=== PATIENT | female | born 1940 | race Caucasian/White ===

== ENCOUNTER → 2019-06-13 16:06 | Outpatient (CLI) | payer MEDICARE, OTHER, SELFPAY ==
--- NOTE | 2019-06-13 | DI.RAD.S_ITS ---
PROCEDURE: XR KNEE RT 3V INDICATIONS: RIGHT KNEE PAIN TECHNIQUE: 3 views of the knee were acquired. COMPARISON: None. FINDINGS: Bones: No fractures or dislocations. No suspicious bony lesions. Note is made of a [id number] degree of degenerative osteoarthritic joint space narrowing at the lateral facet of the patellofemoral joint, without trauma. Soft tissues: No joint effusion. No suspicious soft tissue calcifications. IMPRESSION: No trauma found that there is moderately severe patellofemoral joint osteoarthritis is also a mild to moderate degree of medial compartment degenerative osteoarthritis on the frontal view. Dictated by: Gene Adams M.D. on 06/13/2019 at 17:23 Approved by: Gene Adams M.D. on 06/13/2019 at 17:24
== END ==
PROVIDERS: Family Provider Physician Assistant; PCP Physician Assistant; Visit Provider Internal Medicine
DX: S80.01XA Contusion of right knee, initial encounter (principal); M17.11 Unilateral primary osteoarthritis, right knee; M25.561 Pain in right knee
CPT/HCPCS: 73562

== ENCOUNTER → 2019-12-08 15:55 | Outpatient (ROUT) | payer MEDICARE, OTHER, SELFPAY ==
[2019-12-08 16:25] LABS: Add Manual Diff / Slide Review NO; Basophils Absolute Auto 100 /uL (0-100); Basophils Percent Auto 0.8 % (0-2); Eosinophils Absolute Auto 300 /uL (0-450); Eosinophils Percent Auto 3.8 % (2-4); Hematocrit 45.3 % (36-46); Hemoglobin 15.4 g/dL (12.0-16.0); Lymphocytes Absolute Auto 1700 /uL (1100-4500); Lymphocytes Percent Auto 25.9 % (25-40); Mean Corpuscular HGB Conc 34.1 % (30-36); Mean Corpuscular Hemoglobin 30.1 PG (26-34); Mean Corpuscular Volume 88.4 fL (80-100); Monocytes Absolute Auto 500 /uL (0-900); Monocytes Percent Auto 6.9 % (3-14); Neutrophils Absolute Auto 4100 /uL (1500-7000); Neutrophils Percent Auto 62.6 % (50-75); Platelet Count 226 X10^3/uL (150-400); Red Blood Cell Count 5.12 X10^6/uL (4.0-5.2); Red Cell Distribution Width 15.5 % (11.6-14.8); White Blood Cell Count 6.5 X10^3/uL (4.5-11.0)
[2019-12-08 16:43] LABS: Alanine Aminotransferase 27 IU/L (<35); Albumin 4.2 g/dL (3.5-5.0); Albumin Globulin Ratio 1.4 (1.0-2.8); Alkaline Phosphatase 65 U/L (38-126); Aspartate Aminotransferase 48 IU/L (14-36); BUN Creatinine Ratio 27.1 (6-22); Bilirubin Total 0.7 mg/dL (0.2-1.3); Blood Urea Nitrogen 19 mg/dL (7-17); Calcium 9.5 mg/dL (8.4-10.2); Carbon Dioxide 31 mmol/L (22-32); Chloride 100 mmol/L (98-107); Estimated Glomerular Filt Rate > 60.0 mL/min (>60); Globulin 3.1 g/dL (1.7-4.1); Glucose 98 mg/dL (80-110); HEMOLYSIS < 15 (0-50); Potassium 4.1 mmol/L (3.4-5.1); Sodium 138 mmol/L (137-145); Total Protein 7.3 g/dL (6.3-8.2)
[2019-12-08 16:52] LABS: NT-proBNP (BNP-Adult 18+) 150 pg/mL (<450)
[2019-12-08 17:12] LABS: Thyroid Stimulating Hormone 2.34 uIU/mL (0.47-4.68)
== END ==
PROVIDERS: Family Provider Physician Assistant; PCP Physician Assistant; Visit Provider Internal Medicine
DX: R53.83 Other fatigue (principal); R06.00 Dyspnea, unspecified
CPT/HCPCS: 80053; 83880; 84443; 85025

== ENCOUNTER → 2020-02-13 13:37 | Outpatient (CLI) | payer MEDICARE, OTHER, SELFPAY ==
--- NOTE | 2020-02-13 | DI.ECHO.S_ITS ---
[facility]---------+ [facility] +---------+ : : [address] : : : [place], [place] : : : : [id number] : : : : Phone: [phone]+ Echocardiogram Report + + :Name: ERIK RAY Study Date: 02/13/2020 Height: 64 in : :[facility] Weight: 190 lb : : Gender: Female BSA: 1.9 m2 : :: 1940 Age: 79 yrs BP: 118/74 mmHg: :Reason For Study: DYSPNEA : : Performed By: Stephanie Whitt : :Referring: TRI WYNN L : + + Interpretation Summary 1) Normal left ventricular size, thickness, wall motion, and systolic function (EF 60-65%). 2) Normal right ventricular size and function. 3) No significant valvular abnormalities. 4) The right ventricular systolic pressure is estimated to be at least 34 mmHg based on an estimated right atrial pressure of 3 mm Hg. 5) No prior Echo available for comparison. Procedure: A two-dimensional transthoracic echocardiogram with color flow and Doppler was performed. The study quality was technically adequate. The patient was in normal sinus rhythm during the exam. Left Ventricle: The left ventricle is normal in size and wall thickness. The ejection fraction is estimated to be 60-65%. Left ventricular wall motion is normal. Right Ventricle: The right ventricle is normal in size and function. Atria: Both atria are normal in size. There is no Doppler evidence for an interatrial shunt. Mitral Valve: The mitral valve is normal in structure and function. There is mild mitral regurgitation. Aortic Valve: The aortic valve is trileaflet. The aortic valve opens well. There is no aortic valve stenosis. There is trace aortic regurgitation. Tricuspid Valve: The tricuspid valve is normal in structure and function. There is mild tricuspid regurgitation. The right ventricular systolic pressure is estimated to be at least 34 mmHg based on an estimated right atrial pressure of 3 mm Hg. Pulmonic Valve: The pulmonic valve is not well seen, but is grossly normal. There is no pulmonic valvular regurgitation. Great Vessels: The aortic root is normal size. The ascending aorta could not be visualized. The IVC is of normal diameter and collapses greater than 50% with a sniff. This suggests a low right atrial pressure of 3 mm Hg. Pericardium/ Pleura There is no pericardial effusion. There is no pleural effusion. MMode/2D Measurements & Calculations LVIDd: 3.9 cm LVOT diam: 2.0 cm LVIDs: 2.8 cm Ao root diam: 3.6 cm FS: 29.1 % Ao Arch Diam (Prox Trans): 3.7 cm EPSS: 0.42 cm IVSd: 0.92 cm LVPWd: 0.98 cm LV tiwari. diameter/BSA (cm/m^2): 2.0 LV sys. diameter/BSA (cm/m^2): 1.4 LA A2 area: 20.3 cm2 RA long axis: 5.4 cm LA A4 area: 15.2 cm2 RA area: 14.3 cm2 LA length (vol): 5.2 cm RA vol: 32.1 ml LA vol: 49.8 ml RA : 16.8 ml/m2 LA vol index: 26.0 ml/m2 IVC diam: 1.3 cm RVD1 (basal): 2.7 cm TAPSE: 2.0 cm Doppler Measurements & Calculations Ao V2 max: 138.9 cm/sec LVOT Max Lonny: 94.8 cm/sec Ao V2 mean: 88.3 cm/sec LV V1 max P.6 mmHg Ao max P.7 mmHg LV V1 VTI: 22.4 cm Ao mean P.7 mmHg BIN(I,D): 2.6 cm2 Ao V2 VTI: 26.9 cm BIN(V,D): 2.1 cm2 sev ratio: 0.83 BIN indexed to BSA (cm^2/m^2): 1.3 MV E max lonny: 81.5 cm/sec TR max lonny: 277.9 cm/sec MV A max lonny: 86.8 cm/sec TR max P.9 mmHg MV E/A: 0.94 PA V2 max: 71.0 cm/sec Med Peak E' Lonny: 7.8 cm/sec PA V2 mean: 48.0 cm/sec E/E' med: 10.4 PA mean P.1 mmHg Lat Peak E' Lonny: 9.7 cm/sec E/E' lat: 8.4 E/e' average: 9.4 MV dec time: 0.20 sec SV(LVOT): 68.6 ml Reading Physician:03:19 PM
== END ==
PROVIDERS: Family Provider Physician Assistant; PCP Internal Medicine; Referring Provider Internal Medicine; Visit Provider Internal Medicine
DX: I08.1 Rheumatic disorders of both mitral and tricuspid valves (principal); R06.00 Dyspnea, unspecified
CPT/HCPCS: 93306

== ENCOUNTER 2020-03-12 16:19 | Inpatient (IN) | payer MEDICARE, OTHER, SELFPAY ==
[2020-03-12] VITALS (7 sets, daily range): BP systolic 100–127; BP diastolic 55–61; PULSE 73–104; RESP 16–32; TEMP 36.8–38.5; O2SAT 88–94; BMI 33.6
--- NOTE | 2020-03-12 16:35 | DI.RAD.S_ITS ---
PROCEDURE: XR CHEST 1V INDICATIONS: flu-like symptoms TECHNIQUE: One view of the chest was acquired. COMPARISON: [facility], , CHEST 1 VIEW, 12/22/2017, 12:08. FINDINGS: Surgical changes and devices: None. Lungs and pleura: Lungs are clear. Linear bibasilar scarring. No pleural effusions or pneumothorax. Mediastinum: Mediastinal contours appear normal. Heart size is normal. Bones and chest wall: No suspicious bony lesions. Overlying soft tissues appear unremarkable. IMPRESSION: No evidence acute pulmonary process. Dictated by: Renny Paredes M.D. on 03/12/2020 at 17:41 Approved by: Renny Paredes M.D. on 03/12/2020 at 17:42
[2020-03-12] MEDS: ALBUTEROL HFA 60 PUFF/8 GM INH INH (16:39)
--- NOTE | 2020-03-12 17:13 | ED.SOB ---
HPI - SOB/Dyspnea <Any Snyder PA-C - Last Filed: 03/12/20 21:46> General Chief Complaint: Shortness of Breath/Dyspnea Stated Complaint: VERY COLD FEVER COUGH Time Seen by Provider: 03/12/20 16:22 Source: patient Mode of arrival: Ambulatory Limitations: no limitations History of Present Illness HPI Narrative: This is a 79-year-old woman with a history of COPD and common variable immunodeficiency with recent conclusion of prednisone therapy following COPD exacerbation presents to the emergency department complaining of severe chills, fever, shortness of breath much worse with exertion, intermittent confusion, beginning this afternoon around lunchtime. She says that she has had a slight irritating dry cough today. says that while they were driving up here at 1 point he thinks she was slightly ?delirious and ?and he was not sure she knew where she was. He says this is very abnormal for her, she normally mentating well. She said that yesterday was a normal day for her, and she was feeling a little bit off this morning, when she started to get chills she decided to take a shower, but asked her to check on her he came back to check on her after her shower and she has had what looked like shaking chills and she was not her normal self in terms of her mentation. Her says that she did not have slurred speech or jumbled words. He denies any weakness, and says throughout the entire. She has been able to walk around normally and has not felt lightheaded. She says that the last 2 or 3 days she has noticed some slight burning with urination the 1st time she pees in the morning and then it has been fine after that. She says she has had urinary tract infections before but not for a few years. She denies body aches, weakness, vision changes, headache, coordination or gait issues, sore throat, chest pain, chest pain with inspiration, abdominal pain, diarrhea, constipation, syncope or any other symptoms. MD Complaint: shortness of breath and cough Onset (ago): hour(s) (6) Severity: severe Consistency/Duration: intermittent Relieving factors: rest and upright position Exacerbating factors: exertion and movement Known history of: COPD and other (sleep apnea, common variable immune deficiency) Associated symptoms: fever (and chills) and other (acting delirious intermittently per ) Treatment prior to arrival: none Related Data Home oxygen amount: none Home Medications Medication Instructions Recorded Confirmed calcium carbonate-vitamin D3 1.5 tab PO DAILY #0 02/07/09 03/12/20 [Calcium with Vitamin D] CHOLECALCIFEROL (VITAMIN D3) 2,000 iu PO Q DAY #0 12/24/11 03/12/20 (Vitamin D-3) acetaminophen 325 mg PO PRN PRN #0 12/24/11 03/12/20 aspirin 81 mg PO HS #0 12/24/11 03/12/20 levothyroxine [Synthroid] 1 tab PO QDAY #0 12/24/11 03/12/20 Spiriva Respimat 2 puff IH QAM #0 10/01/17 03/12/20 triamterene-hydrochlorothiazid 1 tab PO DAILY 04/28/18 03/12/20 metoprolol succinate 25 mg PO DAILY 06/23/18 03/12/20 amlodipine 5 mg PO DAILY 03/02/19 03/12/20 escitalopram oxalate [Lexapro] 10 mg PO DAILY 03/02/19 03/12/20 Respironics Dreamstation BIPAP #1 ea 08/15/19 03/12/20 Flovent Diskus 1 inh INHALATION BID 03/12/20 03/12/20 Hizentra 10 g SUBCUT WEEKLY 03/12/20 03/12/20 albuterol sulfate 2 puff INHALATION Q4H PRN 03/12/20 03/12/20 cyanocobalamin (vitamin B-12) 1,000 mcg PO DAILY 03/12/20 03/12/20 Previous Rx's Medication Instructions Recorded rosuvastatin [Crestor] 10 mg PO QHS #30 tab 12/23/17 cefdinir 300 mg PO BID 7 Days #14 cap 03/14/20 prednisone 40 mg PO DAILY 4 Days tab 03/14/20 Allergies Allergy/AdvReac Type Severity Reaction Status Date / Time Sulfa (Sulfonamide Allergy Unknown Verified 03/12/20 16:33 Antibiotics) [SULFA (SULFONAMIDE ANTIBIOTICS)] ciprofloxacin [From CIPRO] AdvReac Intermediate GEOGRAPHIC Verified 03/12/20 16:33 TONGUE diltiazem [DILTIAZEM] AdvReac Unknown SEVERE Verified 03/12/20 16:33 PALPITATIONS lisinopril [LISINOPRIL] AdvReac Unknown COUGH Verified 03/12/20 16:33 losartan AdvReac Hypertension Verified 03/12/20 19:02 Headache Review of Systems <Any Snyder PA-C - Last Filed: 03/12/20 21:46> Review of Systems Narrative: GENERAL: Denies sweats, malaise, endorses chills, fatigue, fever. HEENT: Denies sinus pain, ear pain, sore throat, difficulty swallowing, dizziness. RESPIRATORY: Endorses significant shortness of breath with exertion, mild cough, denies wheezing, hemoptysis, sputum. CARDIOVASCULAR: Denies chest pain, palpitations, orthopnea, edema, GASTROINTESTINAL: Denies nausea, vomiting, abdominal pain, diarrhea, constipation, melena. : Denies dysuria, frequency, incontinence, hematuria, urinary retention. MUSCULOSKELETAL: denies weakness, joint pain, or bony pain SKIN: Denies rash, skin lesions, or other NEUROLOGIC: Endorses confusion intermittently mid-day today, ?delirium per , Denies weakness, headache, numbness, change in speech, seizures, incoordination. PSYCHIATRIC: No concerning psychosocial issues. 12 point review of systems is negative except for those stated above Patient History <Any Snyder PA-C - Last Filed: 03/12/20 21:46> Medical History (Updated 03/12/20 @ 21:42 by Sondra Law MD) COPD (chronic obstructive pulmonary disease) (Acute) CVID (common variable immunodeficiency) (Acute) Depression (Acute) Hyperlipidemia (Acute) Hypertension (Acute) Hypothyroidism (Acute) Surgical History (Updated 03/12/20 @ 21:42 by Sondra Law MD) History of hysterectomy (Acute) Hx of tonsillectomy (Acute) Social History household members: spouse Smoking Status: Never smoker alcohol intake: current Smoking Status: Never smoker alcohol intake frequency: 0-2 drinks per day Substance Use Type: does not use Exam <Any Snyder PA-C - Last Filed: 03/12/20 21:46> Narrative Exam Narrative: GENERAL: 79 year old patient appears stated age. Well-nourished, well-developed patient, in mild-moderate distress at rest. HEAD: Atraumatic. Normocephalic. EYES: Pupils equal round and reactive. Extraocular motions intact. No scleral icterus. No injection or drainage. ENT: Nose without bleeding, purulent drainage. Throat without erythema, tonsillar hypertrophy or exudate. Airway patent. NECK: Trachea midline. Non tender CARDIOVASCULAR: Regular rate and rhythm without murmurs, gallops, or rubs. RESPIRATORY: Clear to auscultation. Breath sounds equal bilaterally (after breathing treatment). No wheezes, rales, or rhonchi. GASTROINTESTINAL: Abdomen soft, non-tender, nondistended. EXTREMITIES: No edema or joint tenderness. BACK: Nontender without deformity or crepitance. No flank tenderness. NEURO: AOx3. Strength is intact bilaterally upper and lower extremities 5/5, cranial nerves are intact, sensation is intact. SKIN: No rash or erythema of visible areas, skin is warm to the touch. Initial Vital Signs Initial Vital Signs: Vital Signs Temperature 101.3 F H 03/12/20 16:23 Pulse Rate 104 H 03/12/20 16:23 Respiratory Rate 32 H 03/12/20 16:23 Blood Pressure 127/61 03/12/20 16:23 Pulse Oximetry 91 03/12/20 16:23 <Bud Mcdaniel DO - Last Filed: 03/15/20 20:41> Initial Vital Signs Initial Vital Signs: Vital Signs Temperature 101.3 F H 03/12/20 16:23 Pulse Rate 104 H 03/12/20 16:23 Respiratory Rate 32 H 03/12/20 16:23 Blood Pressure 127/61 03/12/20 16:23 Pulse Oximetry 91 03/12/20 16:23 Course <Any Snyder PA-C - Last Filed: 03/12/20 21:46> Course Course Narrative: Patient had significant dyspnea on arrival, with walking to the bathroom she desaturated to 81%, however after a breathing treatment via inhaler and resting in bed she was much improved and not feeling short of breath, however she still feels very cold. Her D-dimer is 397, age adjusted D-dimer cut off is 770 an additional imaging is not warranted. 17:43 Doctor Thanh, hospitalist accepted the patient for admission for hypoxia. 20:28 Orders Ordered: Discontinued Medications Acetaminophen (Tylenol) 325 mg PO PRN PRN PRN Reason: Pain (Scale Score 1-3) Last Admin: 03/14/20 11:33 Dose: 325 mg Documented by: Admin: 03/14/20 07:54 Dose: 325 mg Documented by: MAXIMILIAN Albuterol (Ventolin Hfa) 2 puff INH NOW ONE Stop: 03/12/20 16:35 Last Admin: 03/12/20 16:39 Dose: 2 puff Documented by: DAR Albuterol (Ventolin Hfa (Vent/Covid R/O)) 2 puff INH Q4H PRN PRN Reason: Shortness Of Breath Albuterol (Ventolin Hfa) 2 puff INH Q4H PRN PRN Reason: Shortness Of Breath Amlodipine Besylate (Norvasc) 5 mg PO DAILY [facility] Last Admin: 03/14/20 08:00 Dose: 5 mg Documented by: Admin: 03/13/20 08:40 Dose: 5 mg Documented by: GRICELDA Aspirin (Aspirin Ec) 81 mg PO BEDTIME [facility] Last Admin: 03/13/20 20:20 Dose: 81 mg Documented by: Admin: 03/12/20 22:10 Dose: 81 mg Documented by: MIKE Calcium Carbonate/Cholecalciferol (Oyster Shell 500-Vit D3 200 Tb) 1.5 each PO DAILY [facility] Last Admin: 03/14/20 08:00 Dose: 1.5 each Documented by: Admin: 03/13/20 09:37 Dose: 1.5 each Documented by: MAXIMILIAN Cyanocobalamin (Vitamin B-12) 1,000 mcg PO DAILY [facility] Last Admin: 03/14/20 07:59 Dose: 1,000 mcg Documented by: Admin: 03/13/20 08:40 Dose: 1,000 mcg Documented by: GRICELDA Enoxaparin Sodium (Lovenox) 40 mg SUBCUT DAILY [facility] Last Admin: 03/14/20 11:18 Dose: Not Given Documented by: Admin: 03/13/20 08:41 Dose: Not Given Documented by: GRICELDA Escitalopram Oxalate (Lexapro) 10 mg PO DAILY [facility] Last Admin: 03/14/20 11:16 Dose: 10 mg Documented by: Admin: 03/13/20 08:41 Dose: 10 mg Documented by: GRICELDA Fluticasone Propionate (Flonase) 1 spray NASAL BID [facility] Sodium Chloride (Normal Saline 0.9%) 1,000 mls @ 125 mls/hr IV CONT [facility] Last Infusion: 03/13/20 13:23 Dose: 0 mls/hr Documented by: Admin: 03/13/20 06:11 Dose: 125 mls/hr Documented by: Infusion: 03/13/20 06:11 Dose: 125 mls/hr Documented by: Admin: 03/12/20 22:11 Dose: 125 mls/hr Documented by: Admin: 03/12/20 20:45 Dose: Not Given Documented by: HALIEM Ceftriaxone Sodium/Dextrose (Rocephin) 2 gm in 50 mls @ 100 mls/hr IV Q24H [facility] Last Infusion: 03/14/20 11:29 Dose: 0 mls/hr Documented by: Admin: 03/14/20 08:04 Dose: 100 mls/hr Documented by: Infusion: 03/13/20 13:23 Dose: 0 mls/hr Documented by: Admin: 03/13/20 09:37 Dose: 100 mls/hr Documented by: MAXIMILIAN Levothyroxine Sodium (Synthroid) 75 mcg PO QACBREAK [facility] Last Admin: 03/14/20 06:06 Dose: 75 mcg Documented by: Admin: 03/13/20 06:49 Dose: 75 mcg Documented by: NIKIA Metoprolol Succinate (Toprol Xl) 25 mg PO DAILY [facility] Last Admin: 03/14/20 08:00 Dose: 25 mg Documented by: Admin: 03/13/20 08:40 Dose: 25 mg Documented by: GRICELDA Naloxone HCl (Narcan) 0.2 mg IV Q2MIN PRN PRN Reason: Opiate Reversal Fluticasone (Propionate 250 Mcg) 250 mcg INH BID [facility] Last Admin: 03/14/20 08:49 Dose: 250 mcg Documented by: Admin: 03/13/20 19:04 Dose: 250 mcg Documented by: Admin: 03/13/20 09:17 Dose: 250 mcg Documented by: JULIANA Prednisone (Deltasone) 40 mg PO DAILY [facility] Last Admin: 03/14/20 07:59 Dose: 40 mg Documented by: Admin: 03/13/20 08:41 Dose: 40 mg Documented by: GRICELDA Rosuvastatin Calcium (Crestor) 10 mg PO BEDTIME [facility] Last Admin: 03/13/20 20:20 Dose: 10 mg Documented by: Admin: 03/12/20 22:10 Dose: 10 mg Documented by: MIKE Tiotropium [place] (Spiriva) 18 mcg INH RTDAILY EMILIO Tiotropium [place] (Spiriva) 18 mcg INH RTDAILY [facility] Last Admin: 03/14/20 08:49 Dose: 18 mcg Documented by: Admin: 03/13/20 09:17 Dose: 18 mcg Documented by: JULIANA Triamterene/HCTZ (Maxide 37.5/25) 1 tab PO DAILY [facility] Last Admin: 03/14/20 08:02 Dose: 1 tab Documented by: Admin: 03/13/20 08:41 Dose: 1 tab Documented by: GRICELDA Vitamin D (Vitamin D3) 2,000 unit PO DAILY [facility] Last Admin: 03/14/20 08:01 Dose: 2,000 unit Documented by: Admin: 03/13/20 08:40 Dose: 2,000 unit Documented by: GRICELDA Vital Signs Vital signs: Vital Signs - 8 hr 03/12/20 16:23 03/12/20 16:48 03/12/20 18:18 Temperature 101.3 F H Pulse Rate 104 H 93 H Respiratory Rate 32 H 16 Blood Pressure 127/61 Blood Pressure [Left Arm] Pulse Oximetry 91 92 88 L 03/12/20 19:45 03/12/20 20:00 03/12/20 20:30 Temperature 99.3 F Pulse Rate 88 83 83 Respiratory Rate Blood Pressure Blood Pressure [Left Arm] 122/58 L 105/55 L 100/58 L Pulse Oximetry 92 92 93 <Bud Mcdaniel DO - Last Filed: 03/15/20 20:41> Orders Ordered: Discontinued Medications Acetaminophen (Tylenol) 325 mg PO PRN PRN PRN Reason: Pain (Scale Score 1-3) Last Admin: 03/14/20 11:33 Dose: 325 mg Documented by: Admin: 03/14/20 07:54 Dose: 325 mg Documented by: MAXIMILIAN Albuterol (Ventolin Hfa) 2 puff INH NOW ONE Stop: 03/12/20 16:35 Last Admin: 03/12/20 16:39 Dose: 2 puff Documented by: DAR Albuterol (Ventolin Hfa (Vent/Covid R/O)) 2 puff INH Q4H PRN PRN Reason: Shortness Of Breath Albuterol (Ventolin Hfa) 2 puff INH Q4H PRN PRN Reason: Shortness Of Breath Amlodipine Besylate (Norvasc) 5 mg PO DAILY [facility] Last Admin: 03/14/20 08:00 Dose: 5 mg Documented by: Admin: 03/13/20 08:40 Dose: 5 mg Documented by: GRICELDA Aspirin (Aspirin Ec) 81 mg PO BEDTIME [facility] Last Admin: 03/13/20 20:20 Dose: 81 mg Documented by: Admin: 03/12/20 22:10 Dose: 81 mg Documented by: MIKE Calcium Carbonate/Cholecalciferol (Oyster Shell 500-Vit D3 200 Tb) 1.5 each PO DAILY [facility] Last Admin: 03/14/20 08:00 Dose: 1.5 each Documented by: Admin: 03/13/20 09:37 Dose: 1.5 each Documented by: MAXIMILIAN Cyanocobalamin (Vitamin B-12) 1,000 mcg PO DAILY [facility] Last Admin: 03/14/20 07:59 Dose: 1,000 mcg Documented by: Admin: 03/13/20 08:40 Dose: 1,000 mcg Documented by: GRICELDA Enoxaparin Sodium (Lovenox) 40 mg SUBCUT DAILY [facility] Last Admin: 03/14/20 11:18 Dose: Not Given Documented by: Admin: 03/13/20 08:41 Dose: Not Given Documented by: GRICELDA Escitalopram Oxalate (Lexapro) 10 mg PO DAILY [facility] Last Admin: 03/14/20 11:16 Dose: 10 mg Documented by: Admin: 03/13/20 08:41 Dose: 10 mg Documented by: GRICELDA Fluticasone Propionate (Flonase) 1 spray NASAL BID [facility] Sodium Chloride (Normal Saline 0.9%) 1,000 mls @ 125 mls/hr IV CONT [facility] Last Infusion: 03/13/20 13:23 Dose: 0 mls/hr Documented by: Admin: 03/13/20 06:11 Dose: 125 mls/hr Documented by: Infusion: 03/13/20 06:11 Dose: 125 mls/hr Documented by: Admin: 03/12/20 22:11 Dose: 125 mls/hr Documented by: Admin: 03/12/20 20:45 Dose: Not Given Documented by: HALIEM Ceftriaxone Sodium/Dextrose (Rocephin) 2 gm in 50 mls @ 100 mls/hr IV Q24H [facility] Last Infusion: 03/14/20 11:29 Dose: 0 mls/hr Documented by: Admin: 03/14/20 08:04 Dose: 100 mls/hr Documented by: Infusion: 03/13/20 13:23 Dose: 0 mls/hr Documented by: Admin: 03/13/20 09:37 Dose: 100 mls/hr Documented by: MAXIMILIAN Levothyroxine Sodium (Synthroid) 75 mcg PO QACBREAK [facility] Last Admin: 03/14/20 06:06 Dose: 75 mcg Documented by: Admin: 03/13/20 06:49 Dose: 75 mcg Documented by: NIKIA Metoprolol Succinate (Toprol Xl) 25 mg PO DAILY [facility] Last Admin: 03/14/20 08:00 Dose: 25 mg Documented by: Admin: 03/13/20 08:40 Dose: 25 mg Documented by: GRICELDA Naloxone HCl (Narcan) 0.2 mg IV Q2MIN PRN PRN Reason: Opiate Reversal Fluticasone (Propionate 250 Mcg) 250 mcg INH BID [facility] Last Admin: 03/14/20 08:49 Dose: 250 mcg Documented by: Admin: 03/13/20 19:04 Dose: 250 mcg Documented by: Admin: 03/13/20 09:17 Dose: 250 mcg Documented by: JULIANA Prednisone (Deltasone) 40 mg PO DAILY [facility] Last Admin: 03/14/20 07:59 Dose: 40 mg Documented by: Admin: 03/13/20 08:41 Dose: 40 mg Documented by: GRICELDA Rosuvastatin Calcium (Crestor) 10 mg PO BEDTIME [facility] Last Admin: 03/13/20 20:20 Dose: 10 mg Documented by: Admin: 03/12/20 22:10 Dose: 10 mg Documented by: MIKE Tiotropium [place] (Spiriva) 18 mcg INH RTDAILY EMILIO Tiotropium [place] (Spiriva) 18 mcg INH RTDAILY [facility] Last Admin: 03/14/20 08:49 Dose: 18 mcg Documented by: Admin: 03/13/20 09:17 Dose: 18 mcg Documented by: JULIANA Triamterene/HCTZ (Maxide 37.5/25) 1 tab PO DAILY [facility] Last Admin: 03/14/20 08:02 Dose: 1 tab Documented by: Admin: 03/13/20 08:41 Dose: 1 tab Documented by: GRICELDA Vitamin D (Vitamin D3) 2,000 unit PO DAILY [facility] Last Admin: 03/14/20 08:01 Dose: 2,000 unit Documented by: Admin: 03/13/20 08:40 Dose: 2,000 unit Documented by: GRICELDA Vital Signs Vital signs: Vital Signs - 8 hr 03/12/20 16:23 03/12/20 16:48 03/12/20 18:18 Temperature 101.3 F H Pulse Rate 104 H 93 H Respiratory Rate 32 H 16 Blood Pressure 127/61 Blood Pressure [Left Arm] Pulse Oximetry 91 92 88 L 03/12/20 19:45 03/12/20 20:00 03/12/20 20:30 Temperature 99.3 F Pulse Rate 88 83 83 Respiratory Rate Blood Pressure Blood Pressure [Left Arm] 122/58 L 105/55 L 100/58 L Pulse Oximetry 92 92 93 MDM - SOB/Dyspnea <Any Snyder PA-C - Last Filed: 03/12/20 21:46> Differential Diagnosis Differential diagnosis: Likely acute exacerbation of chronic obstructive airways disease and other (hypoxia, fever, chills) Medical Records Attestation: I reviewed the patient's medical records. Lab Data Attestation: I reviewed the patient's lab results. Result diagrams: 03/13/20 04:53 03/13/20 04:53 Labs: Lab Results 03/12/20 03/12/20 03/12/20 Range/Units 16:00 16:55 16:55 WBC (4.5-11.0) X10^3/uL RBC (4.0-5.2) X10^6/uL Hgb (12.0-16.0) g/dL Hct (36-46) % MCV (80-100) fL MCH (26-34) PG MCHC (30-36) % RDW (11.6-14.8) % Plt Count (150-400) X10^3/uL Neut % (Auto) (50-75) % Lymph % (Auto) (25-40) % [place] % (Auto) (3-14) % Eos % (Auto) (2-4) % Baso % (Auto) (0-2) % Neut # (Auto) (4309-8605) /uL Lymph # (Auto) (5879-1834) /uL [place] # (Auto) (0-900) /uL Eos # (Auto) (0-450) /uL Baso # (Auto) (0-100) /uL D-Dimer (<230) ng/mL Sodium (137-145) mmol/L Potassium (3.4-5.1) mmol/L Chloride (98-107) mmol/L Carbon Dioxide (22-32) mmol/L BUN (7-17) mg/dL Creatinine (0.52-1.04) mg/dL Estimated GFR (>60) mL/min BUN/Creatinine Ratio (6-22) Glucose (80-110) mg/dL Lactate (0.7-2.1) mmol/L Calcium (8.4-10.2) mg/dL Ferritin (11-264) ng/mL Total Bilirubin (0.2-1.3) mg/dL AST (14-36) IU/L ALT (<35) IU/L Alkaline Phosphatase (38-126) U/L Lactate Dehydrogenase (313-618) U/L Total Creatine Kinase (30-135) U/L CK-MB (CK-2) CK-MB (CK-2) Rel Index Troponin I (0.01-0.034) ng/mL C-Reactive Protein (<1.0) mg/dL NT-Pro-B Natriuret Pep (<450) pg/mL Total Protein (6.3-8.2) g/dL Albumin (3.5-5.0) g/dL Globulin (1.7-4.1) g/dL Albumin/Globulin Ratio (1.0-2.8) Procalcitonin (<0.5) ng/mL TSH (0.47-4.68) uIU/mL Urine Color Urine Appearance Urine pH (4.5-8.0) Ur Specific [place] (1.000-1.035) Urine Protein (Negative) Urine Glucose (UA) (Negative) g/dL Urine Ketones (NEGATIVE) Urine Occult Blood (Negative) Urine Nitrate (Negative) Urine Bilirubin (NEGATIVE) Urine Urobilinogen (0.2) E.U./dL Ur Leukocyte Esterase (NEGATIVE) Urine RBC (0-5/HPF) Urine WBC (0-5/HPF) Ur Squamous Epith Cells (0-5/HPF) Urine Bacteria (None) Ur Culture Indicated? COVID-19 PCR Cancelled Negative Influenza A (RT-PCR) Flu a negative (NEGATIVE) Influenza B (RT-PCR) Flu b negative (NEGATIVE) 03/12/20 03/12/20 03/12/20 Range/Units 16:58 16:58 16:58 WBC 10.5 (4.5-11.0) X10^3/uL RBC 5.35 H (4.0-5.2) X10^6/uL Hgb 16.2 H (12.0-16.0) g/dL Hct 46.5 H (36-46) % MCV 87.0 (80-100) fL MCH 30.2 (26-34) PG MCHC 34.8 (30-36) % RDW 14.9 H (11.6-14.8) % Plt Count 155 (150-400) X10^3/uL Neut % (Auto) 86.0 H (50-75) % Lymph % (Auto) 5.9 L (25-40) % [place] % (Auto) 5.3 (3-14) % Eos % (Auto) 2.2 (2-4) % Baso % (Auto) 0.6 (0-2) % Neut # (Auto) 9100 H (8585-1643) /uL Lymph # (Auto) 600 L (6934-4483) /uL [place] # (Auto) 600 (0-900) /uL Eos # (Auto) 200 (0-450) /uL Baso # (Auto) 100 (0-100) /uL D-Dimer 397 H (<230) ng/mL Sodium (137-145) mmol/L Potassium (3.4-5.1) mmol/L Chloride (98-107) mmol/L Carbon Dioxide (22-32) mmol/L BUN (7-17) mg/dL Creatinine (0.52-1.04) mg/dL Estimated GFR (>60) mL/min BUN/Creatinine Ratio (6-22) Glucose (80-110) mg/dL Lactate (0.7-2.1) mmol/L Calcium (8.4-10.2) mg/dL Ferritin (11-264) ng/mL Total Bilirubin (0.2-1.3) mg/dL AST (14-36) IU/L ALT (<35) IU/L Alkaline Phosphatase (38-126) U/L Lactate Dehydrogenase (313-618) U/L Total Creatine Kinase (30-135) U/L CK-MB (CK-2) CK-MB (CK-2) Rel Index Troponin I (0.01-0.034) ng/mL C-Reactive Protein (<1.0) mg/dL NT-Pro-B Natriuret Pep (<450) pg/mL Total Protein (6.3-8.2) g/dL Albumin (3.5-5.0) g/dL Globulin (1.7-4.1) g/dL Albumin/Globulin Ratio (1.0-2.8) Procalcitonin 0.39 (<0.5) ng/mL TSH (0.47-4.68) uIU/mL Urine Color Urine Appearance Urine pH (4.5-8.0) Ur Specific [place] (1.000-1.035) Urine Protein (Negative) Urine Glucose (UA) (Negative) g/dL Urine Ketones (NEGATIVE) Urine Occult Blood (Negative) Urine Nitrate (Negative) Urine Bilirubin (NEGATIVE) Urine Urobilinogen (0.2) E.U./dL Ur Leukocyte Esterase (NEGATIVE) Urine RBC (0-5/HPF) Urine WBC (0-5/HPF) Ur Squamous Epith Cells (0-5/HPF) Urine Bacteria (None) Ur Culture Indicated? COVID-19 PCR Influenza A (RT-PCR) (NEGATIVE) Influenza B (RT-PCR) (NEGATIVE) 03/12/20 03/12/20 03/12/20 Range/Units 16:58 16:58 16:58 WBC (4.5-11.0) X10^3/uL RBC (4.0-5.2) X10^6/uL Hgb (12.0-16.0) g/dL Hct (36-46) % MCV (80-100) fL MCH (26-34) PG MCHC (30-36) % RDW (11.6-14.8) % Plt Count (150-400) X10^3/uL Neut % (Auto) (50-75) % Lymph % (Auto) (25-40) % [place] % (Auto) (3-14) % Eos % (Auto) (2-4) % Baso % (Auto) (0-2) % Neut # (Auto) (7195-6211) /uL Lymph # (Auto) (5234-3940) /uL [place] # (Auto) (0-900) /uL Eos # (Auto) (0-450) /uL Baso # (Auto) (0-100) /uL D-Dimer (<230) ng/mL Sodium 132 L (137-145) mmol/L Potassium 4.0 (3.4-5.1) mmol/L Chloride 92 L (98-107) mmol/L Carbon Dioxide 31 (22-32) mmol/L BUN 23 H (7-17) mg/dL Creatinine 0.93 (0.52-1.04) mg/dL Estimated GFR 58.5 L (>60) mL/min BUN/Creatinine Ratio 24.7 H (6-22) Glucose 104 (80-110) mg/dL Lactate 1.2 (0.7-2.1) mmol/L Calcium 9.3 (8.4-10.2) mg/dL Ferritin 63 (11-264) ng/mL Total Bilirubin 0.7 (0.2-1.3) mg/dL AST 51 H (14-36) IU/L ALT 45 H (<35) IU/L Alkaline Phosphatase 63 (38-126) U/L Lactate Dehydrogenase (313-618) U/L Total Creatine Kinase 39 (30-135) U/L CK-MB (CK-2) TNP CK-MB (CK-2) Rel Index TNP Troponin I < 0.012 (0.01-0.034) ng/mL C-Reactive Protein 1.7 H (<1.0) mg/dL NT-Pro-B Natriuret Pep 1020 H (<450) pg/mL Total Protein 7.7 (6.3-8.2) g/dL Albumin 4.3 (3.5-5.0) g/dL Globulin 3.4 (1.7-4.1) g/dL Albumin/Globulin Ratio 1.3 (1.0-2.8) Procalcitonin (<0.5) ng/mL TSH 3.40 (0.47-4.68) uIU/mL Urine Color Urine Appearance Urine pH (4.5-8.0) Ur Specific [place] (1.000-1.035) Urine Protein (Negative) Urine Glucose (UA) (Negative) g/dL Urine Ketones (NEGATIVE) Urine Occult Blood (Negative) Urine Nitrate (Negative) Urine Bilirubin (NEGATIVE) Urine Urobilinogen (0.2) E.U./dL Ur Leukocyte Esterase (NEGATIVE) Urine RBC (0-5/HPF) Urine WBC (0-5/HPF) Ur Squamous Epith Cells (0-5/HPF) Urine Bacteria (None) Ur Culture Indicated? COVID-19 PCR Influenza A (RT-PCR) (NEGATIVE) Influenza B (RT-PCR) (NEGATIVE) 03/12/20 03/12/20 03/13/20 Range/Units 16:58 17:50 04:53 WBC (4.5-11.0) X10^3/uL RBC (4.0-5.2) X10^6/uL Hgb (12.0-16.0) g/dL Hct (36-46) % MCV (80-100) fL MCH (26-34) PG MCHC (30-36) % RDW (11.6-14.8) % Plt Count (150-400) X10^3/uL Neut % (Auto) (50-75) % Lymph % (Auto) (25-40) % [place] % (Auto) (3-14) % Eos % (Auto) (2-4) % Baso % (Auto) (0-2) % Neut # (Auto) (3335-9986) /uL Lymph # (Auto) (3789-6868) /uL [place] # (Auto) (0-900) /uL Eos # (Auto) (0-450) /uL Baso # (Auto) (0-100) /uL D-Dimer (<230) ng/mL Sodium 135 L (137-145) mmol/L Potassium 4.0 (3.4-5.1) mmol/L Chloride 97 L (98-107) mmol/L Carbon Dioxide 30 (22-32) mmol/L BUN 20 H (7-17) mg/dL Creatinine 0.97 (0.52-1.04) mg/dL Estimated GFR 55.7 L (>60) mL/min BUN/Creatinine Ratio 20.6 (6-22) Glucose 97 (80-110) mg/dL Lactate (0.7-2.1) mmol/L Calcium 8.6 (8.4-10.2) mg/dL Ferritin (11-264) ng/mL Total Bilirubin 0.8 (0.2-1.3) mg/dL AST 40 H (14-36) IU/L ALT 36 H (<35) IU/L Alkaline Phosphatase 45 (38-126) U/L Lactate Dehydrogenase 475 (313-618) U/L Total Creatine Kinase (30-135) U/L CK-MB (CK-2) CK-MB (CK-2) Rel Index Troponin I (0.01-0.034) ng/mL C-Reactive Protein (<1.0) mg/dL NT-Pro-B Natriuret Pep (<450) pg/mL Total Protein 6.9 (6.3-8.2) g/dL Albumin 3.7 (3.5-5.0) g/dL Globulin 3.2 (1.7-4.1) g/dL Albumin/Globulin Ratio 1.2 (1.0-2.8) Procalcitonin (<0.5) ng/mL TSH (0.47-4.68) uIU/mL Urine Color Yellow Urine Appearance Clear Urine pH 7.0 (4.5-8.0) Ur Specific [place] 1.010 (1.000-1.035) Urine Protein Trace H (Negative) Urine Glucose (UA) Negative (Negative) g/dL Urine Ketones Negative (NEGATIVE) Urine Occult Blood 1+ H (Negative) Urine Nitrate Negative (Negative) Urine Bilirubin Negative (NEGATIVE) Urine Urobilinogen 0.2 (0.2) E.U./dL Ur Leukocyte Esterase Trace H (NEGATIVE) Urine RBC 5-10/hpf H (0-5/HPF) Urine WBC 5-10/hpf H (0-5/HPF) Ur Squamous Epith Cells 0-1 /hpf (0-5/HPF) Urine Bacteria Few (2-10) H (None) Ur Culture Indicated? Specimen cultured COVID-19 PCR Influenza A (RT-PCR) (NEGATIVE) Influenza B (RT-PCR) (NEGATIVE) 03/13/20 03/13/20 Range/Units 04:53 04:53 WBC 7.1 (4.5-11.0) X10^3/uL RBC 5.11 (4.0-5.2) X10^6/uL Hgb 15.3 (12.0-16.0) g/dL Hct 44.4 (36-46) % MCV 87.0 (80-100) fL MCH 29.9 (26-34) PG MCHC 34.4 (30-36) % RDW 14.6 (11.6-14.8) % Plt Count 125 L (150-400) X10^3/uL Neut % (Auto) 76.0 H (50-75) % Lymph % (Auto) 12.6 L (25-40) % [place] % (Auto) 8.5 (3-14) % Eos % (Auto) 2.0 (2-4) % Baso % (Auto) 0.9 (0-2) % Neut # (Auto) 5400 (9444-9834) /uL Lymph # (Auto) 900 L (0478-7566) /uL [place] # (Auto) 600 (0-900) /uL Eos # (Auto) 100 (0-450) /uL Baso # (Auto) 100 (0-100) /uL D-Dimer (<230) ng/mL Sodium (137-145) mmol/L Potassium (3.4-5.1) mmol/L Chloride (98-107) mmol/L Carbon Dioxide (22-32) mmol/L BUN (7-17) mg/dL Creatinine (0.52-1.04) mg/dL Estimated GFR (>60) mL/min BUN/Creatinine Ratio (6-22) Glucose (80-110) mg/dL Lactate (0.7-2.1) mmol/L Calcium (8.4-10.2) mg/dL Ferritin (11-264) ng/mL Total Bilirubin (0.2-1.3) mg/dL AST (14-36) IU/L ALT (<35) IU/L Alkaline Phosphatase (38-126) U/L Lactate Dehydrogenase (313-618) U/L Total Creatine Kinase (30-135) U/L CK-MB (CK-2) CK-MB (CK-2) Rel Index Troponin I (0.01-0.034) ng/mL C-Reactive Protein (<1.0) mg/dL NT-Pro-B Natriuret Pep 733 H (<450) pg/mL Total Protein (6.3-8.2) g/dL Albumin (3.5-5.0) g/dL Globulin (1.7-4.1) g/dL Albumin/Globulin Ratio (1.0-2.8) Procalcitonin (<0.5) ng/mL TSH (0.47-4.68) uIU/mL Urine Color Urine Appearance Urine pH (4.5-8.0) Ur Specific [place] (1.000-1.035) Urine Protein (Negative) Urine Glucose (UA) (Negative) g/dL Urine Ketones (NEGATIVE) Urine Occult Blood (Negative) Urine Nitrate (Negative) Urine Bilirubin (NEGATIVE) Urine Urobilinogen (0.2) E.U./dL Ur Leukocyte Esterase (NEGATIVE) Urine RBC (0-5/HPF) Urine WBC (0-5/HPF) Ur Squamous Epith Cells (0-5/HPF) Urine Bacteria (None) Ur Culture Indicated? COVID-19 PCR Influenza A (RT-PCR) (NEGATIVE) Influenza B (RT-PCR) (NEGATIVE) Imaging Data Chest x-ray: Attestation: I personally reviewed and interpreted this imaging study as follows: Radiologist's Impression: [address] [address] XRay Report Signed Patient: TejadaLis LMR#: [id number] : 3Acct:[id number] Age/Sex: 79 / FDate of Service: 03/12/20 Loc: ED Accession Number: [id number] Procedure: XR chest 1V Ordering Provider: Any Snyder P.A-C PROCEDURE: XR CHEST 1V INDICATIONS: flu-like symptoms TECHNIQUE: One view of the chest was acquired. COMPARISON: [facility], CHEST 1 VIEW, 12/22/2017, 12:08. FINDINGS: Surgical changes and devices: None. Lungs and pleura: Lungs are clear. Linear bibasilar scarring. No pleural effusions or pneumothorax. Mediastinum: Mediastinal contours appear normal. Heart size is normal. Bones and chest wall: No suspicious bony lesions. Overlying soft tissues appear unremarkable. IMPRESSION: No evidence acute pulmonary process. Dictated by: Renny Paredes M.D. on 03/12/2020 at 17:41 Approved by: Renny Paredes M.D. 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 History is notable for recently finishing a 3 week course of steroids. Differential diagnoses that were considered include: COPD exacerbation, influenza, COVID-19, viral illness, bacterial pneumonia, viral pneumonia CHF, urinary tract infection, sepsis That she did have some relief with the breathing treatment in the emergency department, it is not clear that her shortness of breath is due to her COPD, labs were largely unremarkable with exception an elevated BNP, and she also had continued shortness of breath with exertion. Suspected infectious etiology/cause of her fever and chills was not identified. UTI is considered given her mild urinary symptoms by Hx, however her urinalysis is not particularly remarkable. Patient was ultimately admitted to Dr. Law, hospitalist as an inpatient for further management given her continued hypoxia. <Bud Jonas, DO - Last Filed: 03/15/20 20:41> Lab Data Labs: Lab Results 03/12/20 03/12/20 03/12/20 Range/Units 16:00 16:55 16:55 WBC (4.5-11.0) X10^3/uL RBC (4.0-5.2) X10^6/uL Hgb (12.0-16.0) g/dL Hct (36-46) % MCV (80-100) fL MCH (26-34) PG MCHC (30-36) % RDW (11.6-14.8) % Plt Count (150-400) X10^3/uL Neut % (Auto) (50-75) % Lymph % (Auto) (25-40) % [place] % (Auto) (3-14) % Eos % (Auto) (2-4) % Baso % (Auto) (0-2) % Neut # (Auto) (7509-1419) /uL Lymph # (Auto) (5350-1801) /uL [place] # (Auto) (0-900) /uL Eos # (Auto) (0-450) /uL Baso # (Auto) (0-100) /uL D-Dimer (<230) ng/mL Sodium (137-145) mmol/L Potassium (3.4-5.1) mmol/L Chloride (98-107) mmol/L Carbon Dioxide (22-32) mmol/L BUN (7-17) mg/dL Creatinine (0.52-1.04) mg/dL Estimated GFR (>60) mL/min BUN/Creatinine Ratio (6-22) Glucose (80-110) mg/dL Lactate (0.7-2.1) mmol/L Calcium (8.4-10.2) mg/dL Ferritin (11-264) ng/mL Total Bilirubin (0.2-1.3) mg/dL AST (14-36) IU/L ALT (<35) IU/L Alkaline Phosphatase (38-126) U/L Lactate Dehydrogenase (313-618) U/L Total Creatine Kinase (30-135) U/L CK-MB (CK-2) CK-MB (CK-2) Rel Index Troponin I (0.01-0.034) ng/mL C-Reactive Protein (<1.0) mg/dL NT-Pro-B Natriuret Pep (<450) pg/mL Total Protein (6.3-8.2) g/dL Albumin (3.5-5.0) g/dL Globulin (1.7-4.1) g/dL Albumin/Globulin Ratio (1.0-2.8) Procalcitonin (<0.5) ng/mL TSH (0.47-4.68) uIU/mL Urine Color Urine Appearance Urine pH (4.5-8.0) Ur Specific [place] (1.000-1.035) Urine Protein (Negative) Urine Glucose (UA) (Negative) g/dL Urine Ketones (NEGATIVE) Urine Occult Blood (Negative) Urine Nitrate (Negative) Urine Bilirubin (NEGATIVE) Urine Urobilinogen (0.2) E.U./dL Ur Leukocyte Esterase (NEGATIVE) Urine RBC (0-5/HPF) Urine WBC (0-5/HPF) Ur Squamous Epith Cells (0-5/HPF) Urine Bacteria (None) Ur Culture Indicated? COVID-19 PCR Cancelled Negative Influenza A (RT-PCR) Flu a negative (NEGATIVE) Influenza B (RT-PCR) Flu b negative (NEGATIVE) 03/12/20 03/12/20 03/12/20 Range/Units 16:58 16:58 16:58 WBC 10.5 (4.5-11.0) X10^3/uL RBC 5.35 H (4.0-5.2) X10^6/uL Hgb 16.2 H (12.0-16.0) g/dL Hct 46.5 H (36-46) % MCV 87.0 (80-100) fL MCH 30.2 (26-34) PG MCHC 34.8 (30-36) % RDW 14.9 H (11.6-14.8) % Plt Count 155 (150-400) X10^3/uL Neut % (Auto) 86.0 H (50-75) % Lymph % (Auto) 5.9 L (25-40) % [place] % (Auto) 5.3 (3-14) % Eos % (Auto) 2.2 (2-4) % Baso % (Auto) 0.6 (0-2) % Neut # (Auto) 9100 H (8224-3284) /uL Lymph # (Auto) 600 L (7463-8939) /uL [place] # (Auto) 600 (0-900) /uL Eos # (Auto) 200 (0-450) /uL Baso # (Auto) 100 (0-100) /uL D-Dimer 397 H (<230) ng/mL Sodium (137-145) mmol/L Potassium (3.4-5.1) mmol/L Chloride (98-107) mmol/L Carbon Dioxide (22-32) mmol/L BUN (7-17) mg/dL Creatinine (0.52-1.04) mg/dL Estimated GFR (>60) mL/min BUN/Creatinine Ratio (6-22) Glucose (80-110) mg/dL Lactate (0.7-2.1) mmol/L Calcium (8.4-10.2) mg/dL Ferritin (11-264) ng/mL Total Bilirubin (0.2-1.3) mg/dL AST (14-36) IU/L ALT (<35) IU/L Alkaline Phosphatase (38-126) U/L Lactate Dehydrogenase (313-618) U/L Total Creatine Kinase (30-135) U/L CK-MB (CK-2) CK-MB (CK-2) Rel Index Troponin I (0.01-0.034) ng/mL C-Reactive Protein (<1.0) mg/dL NT-Pro-B Natriuret Pep (<450) pg/mL Total Protein (6.3-8.2) g/dL Albumin (3.5-5.0) g/dL Globulin (1.7-4.1) g/dL Albumin/Globulin Ratio (1.0-2.8) Procalcitonin 0.39 (<0.5) ng/mL TSH (0.47-4.68) uIU/mL Urine Color Urine Appearance Urine pH (4.5-8.0) Ur Specific [place] (1.000-1.035) Urine Protein (Negative) Urine Glucose (UA) (Negative) g/dL Urine Ketones (NEGATIVE) Urine Occult Blood (Negative) Urine Nitrate (Negative) Urine Bilirubin (NEGATIVE) Urine Urobilinogen (0.2) E.U./dL Ur Leukocyte Esterase (NEGATIVE) Urine RBC (0-5/HPF) Urine WBC (0-5/HPF) Ur Squamous Epith Cells (0-5/HPF) Urine Bacteria (None) Ur Culture Indicated? COVID-19 PCR Influenza A (RT-PCR) (NEGATIVE) Influenza B (RT-PCR) (NEGATIVE) 03/12/20 03/12/20 03/12/20 Range/Units 16:58 16:58 16:58 WBC (4.5-11.0) X10^3/uL RBC (4.0-5.2) X10^6/uL Hgb (12.0-16.0) g/dL Hct (36-46) % MCV (80-100) fL MCH (26-34) PG MCHC (30-36) % RDW (11.6-14.8) % Plt Count (150-400) X10^3/uL Neut % (Auto) (50-75) % Lymph % (Auto) (25-40) % [place] % (Auto) (3-14) % Eos % (Auto) (2-4) % Baso % (Auto) (0-2) % Neut # (Auto) (0136-1147) /uL Lymph # (Auto) (9661-4271) /uL [place] # (Auto) (0-900) /uL Eos # (Auto) (0-450) /uL Baso # (Auto) (0-100) /uL D-Dimer (<230) ng/mL Sodium 132 L (137-145) mmol/L Potassium 4.0 (3.4-5.1) mmol/L Chloride 92 L (98-107) mmol/L Carbon Dioxide 31 (22-32) mmol/L BUN 23 H (7-17) mg/dL Creatinine 0.93 (0.52-1.04) mg/dL Estimated GFR 58.5 L (>60) mL/min BUN/Creatinine Ratio 24.7 H (6-22) Glucose 104 (80-110) mg/dL Lactate 1.2 (0.7-2.1) mmol/L Calcium 9.3 (8.4-10.2) mg/dL Ferritin 63 (11-264) ng/mL Total Bilirubin 0.7 (0.2-1.3) mg/dL AST 51 H (14-36) IU/L ALT 45 H (<35) IU/L Alkaline Phosphatase 63 (38-126) U/L Lactate Dehydrogenase (313-618) U/L Total Creatine Kinase 39 (30-135) U/L CK-MB (CK-2) TNP CK-MB (CK-2) Rel Index TNP Troponin I < 0.012 (0.01-0.034) ng/mL C-Reactive Protein 1.7 H (<1.0) mg/dL NT-Pro-B Natriuret Pep 1020 H (<450) pg/mL Total Protein 7.7 (6.3-8.2) g/dL Albumin 4.3 (3.5-5.0) g/dL Globulin 3.4 (1.7-4.1) g/dL Albumin/Globulin Ratio 1.3 (1.0-2.8) Procalcitonin (<0.5) ng/mL TSH 3.40 (0.47-4.68) uIU/mL Urine Color Urine Appearance Urine pH (4.5-8.0) Ur Specific [place] (1.000-1.035) Urine Protein (Negative) Urine Glucose (UA) (Negative) g/dL Urine Ketones (NEGATIVE) Urine Occult Blood (Negative) Urine Nitrate (Negative) Urine Bilirubin (NEGATIVE) Urine Urobilinogen (0.2) E.U./dL Ur Leukocyte Esterase (NEGATIVE) Urine RBC (0-5/HPF) Urine WBC (0-5/HPF) Ur Squamous Epith Cells (0-5/HPF) Urine Bacteria (None) Ur Culture Indicated? COVID-19 PCR Influenza A (RT-PCR) (NEGATIVE) Influenza B (RT-PCR) (NEGATIVE) 03/12/20 03/12/20 03/13/20 Range/Units 16:58 17:50 04:53 WBC (4.5-11.0) X10^3/uL RBC (4.0-5.2) X10^6/uL Hgb (12.0-16.0) g/dL Hct (36-46) % MCV (80-100) fL MCH (26-34) PG MCHC (30-36) % RDW (11.6-14.8) % Plt Count (150-400) X10^3/uL Neut % (Auto) (50-75) % Lymph % (Auto) (25-40) % [place] % (Auto) (3-14) % Eos % (Auto) (2-4) % Baso % (Auto) (0-2) % Neut # (Auto) (2368-3580) /uL Lymph # (Auto) (5139-0879) /uL [place] # (Auto) (0-900) /uL Eos # (Auto) (0-450) /uL Baso # (Auto) (0-100) /uL D-Dimer (<230) ng/mL Sodium 135 L (137-145) mmol/L Potassium 4.0 (3.4-5.1) mmol/L Chloride 97 L (98-107) mmol/L Carbon Dioxide 30 (22-32) mmol/L BUN 20 H (7-17) mg/dL Creatinine 0.97 (0.52-1.04) mg/dL Estimated GFR 55.7 L (>60) mL/min BUN/Creatinine Ratio 20.6 (6-22) Glucose 97 (80-110) mg/dL Lactate (0.7-2.1) mmol/L Calcium 8.6 (8.4-10.2) mg/dL Ferritin (11-264) ng/mL Total Bilirubin 0.8 (0.2-1.3) mg/dL AST 40 H (14-36) IU/L ALT 36 H (<35) IU/L Alkaline Phosphatase 45 (38-126) U/L Lactate Dehydrogenase 475 (313-618) U/L Total Creatine Kinase (30-135) U/L CK-MB (CK-2) CK-MB (CK-2) Rel Index Troponin I (0.01-0.034) ng/mL C-Reactive Protein (<1.0) mg/dL NT-Pro-B Natriuret Pep (<450) pg/mL Total Protein 6.9 (6.3-8.2) g/dL Albumin 3.7 (3.5-5.0) g/dL Globulin 3.2 (1.7-4.1) g/dL Albumin/Globulin Ratio 1.2 (1.0-2.8) Procalcitonin (<0.5) ng/mL TSH (0.47-4.68) uIU/mL Urine Color Yellow Urine Appearance Clear Urine pH 7.0 (4.5-8.0) Ur Specific [place] 1.010 (1.000-1.035) Urine Protein Trace H (Negative) Urine Glucose (UA) Negative (Negative) g/dL Urine Ketones Negative (NEGATIVE) Urine Occult Blood 1+ H (Negative) Urine Nitrate Negative (Negative) Urine Bilirubin Negative (NEGATIVE) Urine Urobilinogen 0.2 (0.2) E.U./dL Ur Leukocyte Esterase Trace H (NEGATIVE) Urine RBC 5-10/hpf H (0-5/HPF) Urine WBC 5-10/hpf H (0-5/HPF) Ur Squamous Epith Cells 0-1 /hpf (0-5/HPF) Urine Bacteria Few (2-10) H (None) Ur Culture Indicated? Specimen cultured COVID-19 PCR Influenza A (RT-PCR) (NEGATIVE) Influenza B (RT-PCR) (NEGATIVE) 03/13/20 03/13/20 Range/Units 04:53 04:53 WBC 7.1 (4.5-11.0) X10^3/uL RBC 5.11 (4.0-5.2) X10^6/uL Hgb 15.3 (12.0-16.0) g/dL Hct 44.4 (36-46) % MCV 87.0 (80-100) fL MCH 29.9 (26-34) PG MCHC 34.4 (30-36) % RDW 14.6 (11.6-14.8) % Plt Count 125 L (150-400) X10^3/uL Neut % (Auto) 76.0 H (50-75) % Lymph % (Auto) 12.6 L (25-40) % [place] % (Auto) 8.5 (3-14) % Eos % (Auto) 2.0 (2-4) % Baso % (Auto) 0.9 (0-2) % Neut # (Auto) 5400 (1114-1412) /uL Lymph # (Auto) 900 L (5990-6283) /uL [place] # (Auto) 600 (0-900) /uL Eos # (Auto) 100 (0-450) /uL Baso # (Auto) 100 (0-100) /uL D-Dimer (<230) ng/mL Sodium (137-145) mmol/L Potassium (3.4-5.1) mmol/L Chloride (98-107) mmol/L Carbon Dioxide (22-32) mmol/L BUN (7-17) mg/dL Creatinine (0.52-1.04) mg/dL Estimated GFR (>60) mL/min BUN/Creatinine Ratio (6-22) Glucose (80-110) mg/dL Lactate (0.7-2.1) mmol/L Calcium (8.4-10.2) mg/dL Ferritin (11-264) ng/mL Total Bilirubin (0.2-1.3) mg/dL AST (14-36) IU/L ALT (<35) IU/L Alkaline Phosphatase (38-126) U/L Lactate Dehydrogenase (313-618) U/L Total Creatine Kinase (30-135) U/L CK-MB (CK-2) CK-MB (CK-2) Rel Index Troponin I (0.01-0.034) ng/mL C-Reactive Protein (<1.0) mg/dL NT-Pro-B Natriuret Pep 733 H (<450) pg/mL Total Protein (6.3-8.2) g/dL Albumin (3.5-5.0) g/dL Globulin (1.7-4.1) g/dL Albumin/Globulin Ratio (1.0-2.8) Procalcitonin (<0.5) ng/mL TSH (0.47-4.68) uIU/mL Urine Color Urine Appearance Urine pH (4.5-8.0) Ur Specific [place] (1.000-1.035) Urine Protein (Negative) Urine Glucose (UA) (Negative) g/dL Urine Ketones (NEGATIVE) Urine Occult Blood (Negative) Urine Nitrate (Negative) Urine Bilirubin (NEGATIVE) Urine Urobilinogen (0.2) E.U./dL Ur Leukocyte Esterase (NEGATIVE) Urine RBC (0-5/HPF) Urine WBC (0-5/HPF) Ur Squamous Epith Cells (0-5/HPF) Urine Bacteria (None) Ur Culture Indicated? COVID-19 PCR Influenza A (RT-PCR) (NEGATIVE) Influenza B (RT-PCR) (NEGATIVE) Discharge Plan Departure Patient Disposition: Admitted As Inpatient Clinical Impression: COPD with hypoxia, Chills with fever Discharge Date/Time: 03/12/20 20:48 Instructions: DI for Chronic Obstructive Pulmonary Disease, Physical Activity for People with COPD Referrals: Mona Houston MD [Primary Care Provider] - Admit Date/Time: 03/13/20 09:16 Admit Provider: Sondra Law <Bud Mcdaniel DO - Last Filed: 03/15/20 20:41> Cosign ED Attending Cosignature Attestation: I was immediately available in the department for consultation. This documentation has been reviewed and I agree with assessment and plan. Supervised by Bud Mcdaniel DO
[2020-03-12 17:14] LABS: Add Manual Diff / Slide Review NO; Basophils Absolute Auto 100 /uL (0-100); Basophils Percent Auto 0.6 % (0-2); Eosinophils Absolute Auto 200 /uL (0-450); Eosinophils Percent Auto 2.2 % (2-4); Hematocrit 46.5 % (36-46); Hemoglobin 16.2 g/dL (12.0-16.0); Lymphocytes Absolute Auto 600 /uL (1100-4500); Lymphocytes Percent Auto 5.9 % (25-40); Mean Corpuscular HGB Conc 34.8 % (30-36); Mean Corpuscular Hemoglobin 30.2 PG (26-34); Monocytes Absolute Auto 600 /uL (0-900); Monocytes Percent Auto 5.3 % (3-14); Neutrophils Absolute Auto 9100 /uL (1500-7000); Platelet Count 155 X10^3/uL (150-400); Red Blood Cell Count 5.35 X10^6/uL (4.0-5.2); Red Cell Distribution Width 14.9 % (11.6-14.8); White Blood Cell Count 10.5 X10^3/uL (4.5-11.0)
[2020-03-12 17:24] LABS: D Dimer 397 ng/mL (<230)
[2020-03-12 17:28] LABS: Lactate (Lactic Acid) 1.2 mmol/L (0.7-2.1)
[2020-03-12 17:31] LABS: Alanine Aminotransferase 45 IU/L (<35); Albumin 4.3 g/dL (3.5-5.0); Albumin Globulin Ratio 1.3 (1.0-2.8); Alkaline Phosphatase 63 U/L (38-126); Aspartate Aminotransferase 51 IU/L (14-36); BUN Creatinine Ratio 24.7 (6-22); Bilirubin Total 0.7 mg/dL (0.2-1.3); Blood Urea Nitrogen 23 mg/dL (7-17); C-Reactive Protein Quant 1.7 mg/dL (<1.0); Calcium 9.3 mg/dL (8.4-10.2); Carbon Dioxide 31 mmol/L (22-32); Chloride 92 mmol/L (98-107); Creatine Kinase 39 U/L (30-135); Estimated Glomerular Filt Rate 58.5 mL/min (>60); Globulin 3.4 g/dL (1.7-4.1); Glucose 104 mg/dL (80-110); HEMOLYSIS 17 (0-50); Sodium 132 mmol/L (137-145); Total Protein 7.7 g/dL (6.3-8.2)
[2020-03-12 17:40] LABS: NT-proBNP (BNP-Adult 18+) 1020 pg/mL (<450); Troponin I < 0.012 ng/mL (0.01-0.034)
[2020-03-12 17:54] LABS: Procalcitonin 0.39 ng/mL (<0.5)
[2020-03-12 18:03] LABS: Ferritin 63 ng/mL (11-264)
[2020-03-12 18:05] LABS: Lactate Dehydrogenase 475 U/L (313-618)
--- NOTE | 2020-03-12 18:16 | PC.NURSE ---
pt ambulated to bathroom with 1 person minimal assist. Pt not complaining of shortness of breath until she returned to the room. Pts o2 sat at 88% on RA. Pts o2 sat now at 95% on RA. AUNG raya
[2020-03-12 18:19] LABS: COVID19 -Nasal RAPID Negative (Negative)
[2020-03-12 18:57] LABS: Appearance Urine UA CLEAR; Bilirubin Urine UA NEGATIVE (NEGATIVE); Color Urine UA YELLOW; Glucose Urine UA NEGATIVE (Negative); Ketones Urine UA NEGATIVE (NEGATIVE); Leukocyte Esterase Urine UA TRACE (NEGATIVE); Nitrite Urine UA NEGATIVE (Negative); Occult Blood Urine UA 1+ (Negative); Protein Urine UA TRACE (Negative); Urobilinogen Urine UA 0.2 E.U./dL (0.2)
[2020-03-12 19:15] LABS: Bacteria Urine Few (2-10); Culture Indicated Urine Specimen Cultured; RBC Urine 5-10/HPF (0-5/HPF); Squamous Epithelial Cell Urine 0-1 /HPF (0-5/HPF); WBC Urine 5-10/HPF (0-5/HPF)
[2020-03-12 19:25] LABS: Influenza A - CEPHEID Flu A NEGATIVE (NEGATIVE); Influenza B - CEPHEID Flu B NEGATIVE (NEGATIVE)
--- NOTE | 2020-03-12 21:17 | PM.HP.1 ---
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 Palumbo for similar pulmonary presenting symptoms. Today, quite suddenly in the afternoon she began experiencing shaking chills along with a temperature of 99.7? and mild delirium. On presentation to the emergency department her Covid test was negative along with Flue A and B. her white blood count was normal. Her BNP was elevated at 1020 along with a CRP of 1.7 and a D-dimer of 396 which age adjusted is just over the normal range (less than 385). Her chest x-ray showed no infiltrate or CHF. Her white blood count was only 10.5. At rest her saturation was 91% but on presentation with exertion shortly after the onset of her chills she was satting at 81%. She remained hypoxic with exertion so has been admitted for observation and stabilization. The procalcitonin is normal. The troponin is less than 0.01 to. She has no heart disease history. Lactic acid is 1.2. AST is 51 with ALT of 45 and a sodium of 132. The creatinine is 0.93 with a GFR of 58.5. My review of the chest x-ray is that she does have lung markings on the right lower lobe which radiology is reading as unchanged. On EKG she has sinus rhythm with left anterior fascicular block on my review. Patient History Medical History (Updated 03/12/20 @ 21:42 by Sondra Law MD) COPD (chronic obstructive pulmonary disease) (Acute) CVID (common variable immunodeficiency) (Acute) Depression (Acute) Hyperlipidemia (Acute) Hypertension (Acute) Hypothyroidism (Acute) Surgical History (Updated 03/12/20 @ 21:42 by Sondra Law MD) History of hysterectomy (Acute) Hx of tonsillectomy (Acute) Family & Social History Safety & Behavioral: Feels Safe in Current Yes Environment Been Physically Hurt or No Threatened By a Person Tobacco & Substance use: Smoking Status Never smoker alcohol intake frequency 0-2 drinks per day Substance Use Type does not use Comment: Her backup decision maker is shared between her Eddie Tejada and her sister Linda Gonzales. She lives in [place] with her Eddie Tejada. Her warehouse technician is Dr. Coles in [place] Her template worker is Dr. Justyna Carter in [place]. 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 She has never smoked but has COPD from secondhand smoke exposure. She is full code. Meds Home Medications and Allergies Home Medications Medication Instructions Recorded Confirmed Type calcium carbonate-vitamin D3 1.5 tab PO DAILY #0 02/07/09 03/12/20 History [Calcium with Vitamin D] CHOLECALCIFEROL (VITAMIN D3) 2,000 iu PO Q DAY #0 12/24/11 03/12/20 History (Vitamin D-3) acetaminophen 325 mg PO PRN PRN #0 12/24/11 03/12/20 History aspirin 81 mg PO HS #0 12/24/11 03/12/20 History levothyroxine [Synthroid] 1 tab PO QDAY #0 12/24/11 03/12/20 History Spiriva Respimat 2 puff IH QAM #0 10/01/17 03/12/20 History rosuvastatin [Crestor] 10 mg PO QHS #30 tab 12/23/17 03/12/20 Rx triamterene-hydrochlorothiazid 1 tab PO DAILY 04/28/18 03/12/20 History metoprolol succinate 25 mg PO DAILY 06/23/18 03/12/20 History amlodipine 5 mg PO DAILY 03/02/19 03/12/20 History escitalopram oxalate [Lexapro] 10 mg PO DAILY 03/02/19 03/12/20 History Respironics Dreamstation BIPAP #1 ea 08/15/19 08/15/19 History albuterol sulfate 2 puff INHALATION Q4H PRN 03/12/20 03/12/20 History cyanocobalamin (vitamin B-12) 1,000 mcg PO DAILY 03/12/20 03/12/20 History fluticasone propionate [Flovent 1 inh INHALATION BID 03/12/20 03/12/20 History Diskus] immun glob G(IgG)-pro-IgA 0-50 10 g SUBCUT WEEKLY 03/12/20 03/12/20 History [Hizentra] Allergies Allergy/AdvReac Type Severity Reaction Status Date / Time Sulfa (Sulfonamide Allergy Unknown Verified 03/12/20 16:33 Antibiotics) [SULFA (SULFONAMIDE ANTIBIOTICS)] ciprofloxacin [From CIPRO] AdvReac Intermediate GEOGRAPHIC Verified 03/12/20 16:33 TONGUE diltiazem [DILTIAZEM] AdvReac Unknown SEVERE Verified 03/12/20 16:33 PALPITATIONS lisinopril [LISINOPRIL] AdvReac Unknown COUGH Verified 03/12/20 16:33 losartan AdvReac Hypertension Verified 03/12/20 19:02 Headache Review of Systems Review of Systems Narrative: Positive for chills, shaking, shortness of breath, fever, delirium, chronic cough Negative for chest pain, abdominal pain, vomiting, diarrhea, bleeding, rash, seizures, headaches, difficulty walking, dysuria. ROS: Yes All systems reviewed with the patient and are negative except as otherwise documented Exam Vital Signs (past 8 hours): - 03/12/20 16:23 03/12/20 16:48 03/12/20 18:18 Temperature 101.3 F H Pulse Rate 104 H 93 H Respiratory Rate 32 H 16 Blood Pressure 127/61 Blood Pressure [Left Arm] Pulse Oximetry 91 92 88 L 03/12/20 19:45 03/12/20 20:00 03/12/20 20:30 Temperature 99.3 F Pulse Rate 88 83 83 Respiratory Rate Blood Pressure Blood Pressure [Left Arm] 122/58 L 105/55 L 100/58 L Pulse Oximetry 92 92 93 Oxygen Delivery Method Room Air Narrative Exam Narrative: She is alert and oriented x3, in no apparent distress. She is eating a turkey sandwich without needing oxygen at rest. Pupils are equally round and reactive to light and accommodation. Extraocular muscles are intact. Sclerae are pink and nonicteric. No lymph nodes are felt head, neck, supraclavicular area. There is no thyromegaly. JVD is less than 6 cm. No carotid bruits are heard. Heart is regular rate and rhythm without murmur. Lungs are clear to auscultation bilaterally without wheezing or crackles heard. Abdomen is obese, bowel sounds positive, nontender, no organomegaly. Extremities have no ankle edema. Skin has no rash or jaundice. Neurological exam is notable for normal reflexes. Cranial nerves 2-12 test intact. Motor function is 5/5 throughout. Objective Labs Result Diagrams: 03/12/20 16:58 03/12/20 16:58 Labs: Laboratory Results - last 24 hr 03/12/20 03/12/20 03/12/20 16:00 16:55 16:55 WBC RBC Hgb Hct MCV MCH MCHC RDW Plt Count Neut % (Auto) Lymph % (Auto) [place] % (Auto) Eos % (Auto) Baso % (Auto) Neut # (Auto) Lymph # (Auto) [place] # (Auto) Eos # (Auto) Baso # (Auto) D-Dimer Sodium Potassium Chloride Carbon Dioxide BUN Creatinine Estimated GFR BUN/Creatinine Ratio Glucose Lactate Calcium Ferritin Total Bilirubin AST ALT Alkaline Phosphatase Lactate Dehydrogenase Total Creatine Kinase CK-MB (CK-2) CK-MB (CK-2) Rel Index Troponin I C-Reactive Protein NT-Pro-B Natriuret Pep Total Protein Albumin Globulin Albumin/Globulin Ratio Procalcitonin TSH Urine Color Urine Appearance Urine pH Ur Specific [place] Urine Protein Urine Glucose (UA) Urine Ketones Urine Occult Blood Urine Nitrate Urine Bilirubin Urine Urobilinogen Ur Leukocyte Esterase Urine RBC Urine WBC Ur Squamous Epith Cells Urine Bacteria Ur Culture Indicated? COVID-19 PCR Cancelled Negative Influenza A (RT-PCR) Flu a negative Influenza B (RT-PCR) Flu b negative 03/12/20 03/12/20 03/12/20 16:58 16:58 16:58 WBC 10.5 RBC 5.35 H Hgb 16.2 H Hct 46.5 H MCV 87.0 MCH 30.2 MCHC 34.8 RDW 14.9 H Plt Count 155 Neut % (Auto) 86.0 H Lymph % (Auto) 5.9 L [place] % (Auto) 5.3 Eos % (Auto) 2.2 Baso % (Auto) 0.6 Neut # (Auto) 9100 H Lymph # (Auto) 600 L [place] # (Auto) 600 Eos # (Auto) 200 Baso # (Auto) 100 D-Dimer 397 H Sodium Potassium Chloride Carbon Dioxide BUN Creatinine Estimated GFR BUN/Creatinine Ratio Glucose Lactate Calcium Ferritin Total Bilirubin AST ALT Alkaline Phosphatase Lactate Dehydrogenase Total Creatine Kinase CK-MB (CK-2) CK-MB (CK-2) Rel Index Troponin I C-Reactive Protein NT-Pro-B Natriuret Pep Total Protein Albumin Globulin Albumin/Globulin Ratio Procalcitonin 0.39 TSH Urine Color Urine Appearance Urine pH Ur Specific [place] Urine Protein Urine Glucose (UA) Urine Ketones Urine Occult Blood Urine Nitrate Urine Bilirubin Urine Urobilinogen Ur Leukocyte Esterase Urine RBC Urine WBC Ur Squamous Epith Cells Urine Bacteria Ur Culture Indicated? COVID-19 PCR Influenza A (RT-PCR) Influenza B (RT-PCR) 03/12/20 03/12/20 03/12/20 16:58 16:58 16:58 WBC RBC Hgb Hct MCV MCH MCHC RDW Plt Count Neut % (Auto) Lymph % (Auto) [place] % (Auto) Eos % (Auto) Baso % (Auto) Neut # (Auto) Lymph # (Auto) [place] # (Auto) Eos # (Auto) Baso # (Auto) D-Dimer Sodium 132 L Potassium 4.0 Chloride 92 L Carbon Dioxide 31 BUN 23 H Creatinine 0.93 Estimated GFR 58.5 L BUN/Creatinine Ratio 24.7 H Glucose 104 Lactate 1.2 Calcium 9.3 Ferritin 63 Total Bilirubin 0.7 AST 51 H ALT 45 H Alkaline Phosphatase 63 Lactate Dehydrogenase Total Creatine Kinase 39 CK-MB (CK-2) TNP CK-MB (CK-2) Rel Index TNP Troponin I < 0.012 C-Reactive Protein 1.7 H NT-Pro-B Natriuret Pep 1020 H Total Protein 7.7 Albumin 4.3 Globulin 3.4 Albumin/Globulin Ratio 1.3 Procalcitonin TSH 3.40 Urine Color Urine Appearance Urine pH Ur Specific [place] Urine Protein Urine Glucose (UA) Urine Ketones Urine Occult Blood Urine Nitrate Urine Bilirubin Urine Urobilinogen Ur Leukocyte Esterase Urine RBC Urine WBC Ur Squamous Epith Cells Urine Bacteria Ur Culture Indicated? COVID-19 PCR Influenza A (RT-PCR) Influenza B (RT-PCR) 03/12/20 03/12/20 16:58 17:50 WBC RBC Hgb Hct MCV MCH MCHC RDW Plt Count Neut % (Auto) Lymph % (Auto) [place] % (Auto) Eos % (Auto) Baso % (Auto) Neut # (Auto) Lymph # (Auto) [place] # (Auto) Eos # (Auto) Baso # (Auto) D-Dimer Sodium Potassium Chloride Carbon Dioxide BUN Creatinine Estimated GFR BUN/Creatinine Ratio Glucose Lactate Calcium Ferritin Total Bilirubin AST ALT Alkaline Phosphatase Lactate Dehydrogenase 475 Total Creatine Kinase CK-MB (CK-2) CK-MB (CK-2) Rel Index Troponin I C-Reactive Protein NT-Pro-B Natriuret Pep Total Protein Albumin Globulin Albumin/Globulin Ratio Procalcitonin TSH Urine Color Yellow Urine Appearance Clear Urine pH 7.0 Ur Specific [place] 1.010 Urine Protein Trace H Urine Glucose (UA) Negative Urine Ketones Negative Urine Occult Blood 1+ H Urine Nitrate Negative Urine Bilirubin Negative Urine Urobilinogen 0.2 Ur Leukocyte Esterase Trace H Urine RBC 5-10/hpf H Urine WBC 5-10/hpf H Ur Squamous Epith Cells 0-1 /hpf Urine Bacteria Few (2-10) H Ur Culture Indicated? Specimen cultured COVID-19 PCR Influenza A (RT-PCR) Influenza B (RT-PCR) Assessment & Plan Assessment & Plan narrative: Exertional Hypoxia, present on admission, acute - treat COPD and expect to wean oxygen, needing 2 liters with exertion, no oxygen need at rest - CXR unchanged with chronic COPD changes - on 03/12 WBC 10.5, Flu A/B negative, Rapid Covid testing negative, Procalcitonin 0.39 - Troponin less than 0.012 with D-dimer 397 (age cutoff is 385) - BNP 1020 - Echo will be done and will repeat BNP in AM 03/13 - No antibiotics indicated so far. Acute on Chronic Respiratory Failure, present on admission, acute - Apparent COPD Exacerbation - treat with Prednisone and Oxygen on admission - BNP elevated - Repeat 03/13 and Echo pending. Trop and EKG are negative for STEMI. - D-Dimer elevated - 397 (age cut off is 385) COPD Exacerbation, present on admission, acute - Resume Prednisone (recently completed taper) at 40 mg QD - Continue Albuterol, Spiriva and Flovent - Oxygen by ME as needed for exertion CVID, present on admission, chronic - Holding weekly dosing of Hizentra, next dose due around 03/16. Hypothyroidism, present on admission, chronic - TSH 3.4 - Continue home dose of Levothyroxine Hypertension, present on admission, chronic - Continue Losartan, HCTZ, Triamterene and Metoprolol Depression, present on admission, chronic - Continue Lexapro Hyperlipidemia, present on admission, chronic - continue Crestor Elevated LFT - Repeat CMP 03/13, possible fatty liver COVID-19 COVID-19 status: Negative Result date/Date tested (Pos, Neg/Pending): 03/12/20
[2020-03-12] MEDS: ASPIRIN EC 81 MG TABLET PO (22:10)
[2020-03-12] MEDS: ROSUVASTATIN 10 MG TABLET PO (22:10)
[2020-03-12] MEDS: SODIUM CHLORIDE 0.9% 1,000 ML 125 ML IV (22:11)
--- NOTE | 2020-03-12 22:43 | PC.ADMIT ---
1st [email or web address] [facility] Admission Note: The patient,Lis Tejada,79 y/o, was given written information regarding hospital policies, unit procedures and contact persons. Patient's smoking status: Never smoker. Vital Signs - 8 hr 03/12/20 16:23 03/12/20 16:48 03/12/20 18:18 Temperature 101.3 F H Pulse Rate 104 H 93 H Respiratory Rate 32 H 16 Blood Pressure 127/61 Blood Pressure [Left Arm] Pulse Oximetry 91 92 88 L 03/12/20 19:45 03/12/20 20:00 03/12/20 20:30 Temperature 99.3 F Pulse Rate 88 83 83 Respiratory Rate Blood Pressure Blood Pressure [Left Arm] 122/58 L 105/55 L 100/58 L Pulse Oximetry 92 92 93 03/12/20 21:49 Temperature 98.3 F Pulse Rate 73 Respiratory Rate 18 Blood Pressure 118/55 L Blood Pressure [Left Arm] Pulse Oximetry 94 Patient up from ED via stretcher. Patient was able to get off of the stretcher and ambulate to bed, gait was steady. Has been on RA sats mid 90s. Patient has been A&O, calm and cooperative.
[2020-03-13] VITALS (13 sets, daily range): BP systolic 97–127; BP diastolic 54–78; PULSE 66–79; RESP 16–22; TEMP 36.4–38.4; O2SAT 92–95
[2020-03-13 05:52] LABS: Alanine Aminotransferase 36 IU/L (<35); Albumin 3.7 g/dL (3.5-5.0); Albumin Globulin Ratio 1.2 (1.0-2.8); Alkaline Phosphatase 45 U/L (38-126); Aspartate Aminotransferase 40 IU/L (14-36); BUN Creatinine Ratio 20.6 (6-22); Bilirubin Total 0.8 mg/dL (0.2-1.3); Blood Urea Nitrogen 20 mg/dL (7-17); Calcium 8.6 mg/dL (8.4-10.2); Carbon Dioxide 30 mmol/L (22-32); Chloride 97 mmol/L (98-107); Estimated Glomerular Filt Rate 55.7 mL/min (>60); Globulin 3.2 g/dL (1.7-4.1); Glucose 97 mg/dL (80-110); HEMOLYSIS 19 (0-50); Sodium 135 mmol/L (137-145); Total Protein 6.9 g/dL (6.3-8.2)
[2020-03-13 05:54] LABS: Add Manual Diff / Slide Review NO; Basophils Absolute Auto 100 /uL (0-100); Basophils Percent Auto 0.9 % (0-2); Eosinophils Absolute Auto 100 /uL (0-450); Hematocrit 44.4 % (36-46); Hemoglobin 15.3 g/dL (12.0-16.0); Lymphocytes Absolute Auto 900 /uL (1100-4500); Lymphocytes Percent Auto 12.6 % (25-40); Mean Corpuscular HGB Conc 34.4 % (30-36); Mean Corpuscular Hemoglobin 29.9 PG (26-34); Monocytes Absolute Auto 600 /uL (0-900); Monocytes Percent Auto 8.5 % (3-14); Neutrophils Absolute Auto 5400 /uL (1500-7000); Platelet Count 125 X10^3/uL (150-400); Red Blood Cell Count 5.11 X10^6/uL (4.0-5.2); Red Cell Distribution Width 14.6 % (11.6-14.8); White Blood Cell Count 7.1 X10^3/uL (4.5-11.0)
[2020-03-13 05:57] LABS: NT-proBNP (BNP-Adult 18+) 733 pg/mL (<450)
[2020-03-13] MEDS: SODIUM CHLORIDE 0.9% 1,000 ML 125 ML IV (06:11)
[2020-03-13] MEDS: LEVOTHYROXINE 75 MCG TABLET PO (06:49)
[2020-03-13] MEDS: AMLODIPINE 5 MG TABLET PO (08:40)
[2020-03-13] MEDS: CYANOCOBALAMIN (VITAMIN B-12) 500 MCG TABLET 1000 MCG PO (08:40)
[2020-03-13] MEDS: METOPROLOL ER 25 MG TABLET PO (08:40)
[2020-03-13] MEDS: CHOLECALCIFEROL (VITAMIN D3) 1,000 UNIT TABLET 2000 UNIT PO (08:40)
[2020-03-13] MEDS: TRIAMTERENE/HCTZ 37.5/25 TABLET 1 CAP PO (08:41)
[2020-03-13] MEDS: predniSONE 20 MG TABLET 40 MG PO (08:41)
[2020-03-13] MEDS: ESCITALOPRAM 10 MG TABLET PO (08:41)
[2020-03-13] MEDS: FLUTICASONE PROPIONATE 250 MCG 250 EACH INH ×2 (09:17→19:04)
[2020-03-13] MEDS: TIOTROPIUM BROMIDE 18 MCG INHALER INH (09:17)
--- NOTE | 2020-03-13 09:33 | PC.NURSE ---
Lab reports that Pt is E-coli positive in the anerobe bottle. Temp 100.0/101.0/100.[address] Flores and abx were ordered and are being adminitered.
[2020-03-13] MEDS: CEFTRIAXONE 2 GM/50 ML FROZ.PIGGY IV (09:37)
[2020-03-13] MEDS: CALCIUM CARB/VIT D3 500/200 TABLET 1.5 EACH PO (09:37)
--- NOTE | 2020-03-13 12:42 | P.PN_ITS ---
Subjective Subjective Date Patient Seen: 03/13/20 Interval history: The patient is a 79-year-old female who was admitted to the hospital for shaking chills and fever. Patient was found to be hypoxic felt to be due to COPD. Her blood cultures are positive growing E coli. Urine Gram stain positive for E coli as well. According to the the patient was confused. She is awake and alert at this time without evidence of confusion. She continues to have low-grade fever of 100-100.9. She was febrile to 101 last evening. She is off oxygen at this time. She is no longer hypoxic. Exam Vital Signs (past 8 hours): - 03/13/20 07:33 03/13/20 08:00 03/13/20 08:40 Temperature 100.9 F H 100.0 F H Pulse Rate 79 Respiratory Rate 18 Blood Pressure 127/68 127/68 Pulse Oximetry 93 03/13/20 08:44 03/13/20 09:17 03/13/20 09:19 Temperature 100.0 F H Pulse Rate 74 Respiratory Rate 16 Blood Pressure Pulse Oximetry 95 92 03/13/20 12:00 Temperature 101.1 F H Pulse Rate 69 Respiratory Rate 18 Blood Pressure 108/78 Pulse Oximetry 93 Oxygen Delivery Method Room Air Oxygen Flow Rate 0 Narrative Exam Narrative: Elderly female in no obvious distress Lungs: Clear to auscultation Cardiac exam: Regular rate and rhythm normal S1-S2 Abdomen: Soft nontender nondistended, no CVA tender Extremities: No edema Objective Labs Result Diagrams: 03/13/20 04:53 03/13/20 04:53 Labs: Laboratory Results - last 24 hr 03/12/20 03/12/20 03/12/20 16:00 16:55 16:55 WBC RBC Hgb Hct MCV MCH MCHC RDW Plt Count Neut % (Auto) Lymph % (Auto) [place] % (Auto) Eos % (Auto) Baso % (Auto) Neut # (Auto) Lymph # (Auto) [place] # (Auto) Eos # (Auto) Baso # (Auto) D-Dimer Sodium Potassium Chloride Carbon Dioxide BUN Creatinine Estimated GFR BUN/Creatinine Ratio Glucose Lactate Calcium Ferritin Total Bilirubin AST ALT Alkaline Phosphatase Lactate Dehydrogenase Total Creatine Kinase CK-MB (CK-2) CK-MB (CK-2) Rel Index Troponin I C-Reactive Protein NT-Pro-B Natriuret Pep Total Protein Albumin Globulin Albumin/Globulin Ratio Procalcitonin TSH Urine Color Urine Appearance Urine pH Ur Specific [place] Urine Protein Urine Glucose (UA) Urine Ketones Urine Occult Blood Urine Nitrate Urine Bilirubin Urine Urobilinogen Ur Leukocyte Esterase Urine RBC Urine WBC Ur Squamous Epith Cells Urine Bacteria Ur Culture Indicated? COVID-19 PCR Cancelled Negative Influenza A (RT-PCR) Flu a negative Influenza B (RT-PCR) Flu b negative 03/12/20 03/12/20 03/12/20 16:58 16:58 16:58 WBC 10.5 RBC 5.35 H Hgb 16.2 H Hct 46.5 H MCV 87.0 MCH 30.2 MCHC 34.8 RDW 14.9 H Plt Count 155 Neut % (Auto) 86.0 H Lymph % (Auto) 5.9 L [place] % (Auto) 5.3 Eos % (Auto) 2.2 Baso % (Auto) 0.6 Neut # (Auto) 9100 H Lymph # (Auto) 600 L [place] # (Auto) 600 Eos # (Auto) 200 Baso # (Auto) 100 D-Dimer 397 H Sodium Potassium Chloride Carbon Dioxide BUN Creatinine Estimated GFR BUN/Creatinine Ratio Glucose Lactate Calcium Ferritin Total Bilirubin AST ALT Alkaline Phosphatase Lactate Dehydrogenase Total Creatine Kinase CK-MB (CK-2) CK-MB (CK-2) Rel Index Troponin I C-Reactive Protein NT-Pro-B Natriuret Pep Total Protein Albumin Globulin Albumin/Globulin Ratio Procalcitonin 0.39 TSH Urine Color Urine Appearance Urine pH Ur Specific [place] Urine Protein Urine Glucose (UA) Urine Ketones Urine Occult Blood Urine Nitrate Urine Bilirubin Urine Urobilinogen Ur Leukocyte Esterase Urine RBC Urine WBC Ur Squamous Epith Cells Urine Bacteria Ur Culture Indicated? COVID-19 PCR Influenza A (RT-PCR) Influenza B (RT-PCR) 03/12/20 03/12/20 03/12/20 16:58 16:58 16:58 WBC RBC Hgb Hct MCV MCH MCHC RDW Plt Count Neut % (Auto) Lymph % (Auto) [place] % (Auto) Eos % (Auto) Baso % (Auto) Neut # (Auto) Lymph # (Auto) [place] # (Auto) Eos # (Auto) Baso # (Auto) D-Dimer Sodium 132 L Potassium 4.0 Chloride 92 L Carbon Dioxide 31 BUN 23 H Creatinine 0.93 Estimated GFR 58.5 L BUN/Creatinine Ratio 24.7 H Glucose 104 Lactate 1.2 Calcium 9.3 Ferritin 63 Total Bilirubin 0.7 AST 51 H ALT 45 H Alkaline Phosphatase 63 Lactate Dehydrogenase Total Creatine Kinase 39 CK-MB (CK-2) TNP CK-MB (CK-2) Rel Index TNP Troponin I < 0.012 C-Reactive Protein 1.7 H NT-Pro-B Natriuret Pep 1020 H Total Protein 7.7 Albumin 4.3 Globulin 3.4 Albumin/Globulin Ratio 1.3 Procalcitonin TSH 3.40 Urine Color Urine Appearance Urine pH Ur Specific [place] Urine Protein Urine Glucose (UA) Urine Ketones Urine Occult Blood Urine Nitrate Urine Bilirubin Urine Urobilinogen Ur Leukocyte Esterase Urine RBC Urine WBC Ur Squamous Epith Cells Urine Bacteria Ur Culture Indicated? COVID-19 PCR Influenza A (RT-PCR) Influenza B (RT-PCR) 03/12/20 03/12/20 03/13/20 16:58 17:50 04:53 WBC RBC Hgb Hct MCV MCH MCHC RDW Plt Count Neut % (Auto) Lymph % (Auto) [place] % (Auto) Eos % (Auto) Baso % (Auto) Neut # (Auto) Lymph # (Auto) [place] # (Auto) Eos # (Auto) Baso # (Auto) D-Dimer Sodium 135 L Potassium 4.0 Chloride 97 L Carbon Dioxide 30 BUN 20 H Creatinine 0.97 Estimated GFR 55.7 L BUN/Creatinine Ratio 20.6 Glucose 97 Lactate Calcium 8.6 Ferritin Total Bilirubin 0.8 AST 40 H ALT 36 H Alkaline Phosphatase 45 Lactate Dehydrogenase 475 Total Creatine Kinase CK-MB (CK-2) CK-MB (CK-2) Rel Index Troponin I C-Reactive Protein NT-Pro-B Natriuret Pep Total Protein 6.9 Albumin 3.7 Globulin 3.2 Albumin/Globulin Ratio 1.2 Procalcitonin TSH Urine Color Yellow Urine Appearance Clear Urine pH 7.0 Ur Specific [place] 1.010 Urine Protein Trace H Urine Glucose (UA) Negative Urine Ketones Negative Urine Occult Blood 1+ H Urine Nitrate Negative Urine Bilirubin Negative Urine Urobilinogen 0.2 Ur Leukocyte Esterase Trace H Urine RBC 5-10/hpf H Urine WBC 5-10/hpf H Ur Squamous Epith Cells 0-1 /hpf Urine Bacteria Few (2-10) H Ur Culture Indicated? Specimen cultured COVID-19 PCR Influenza A (RT-PCR) Influenza B (RT-PCR) 03/13/20 03/13/20 04:53 04:53 WBC 7.1 RBC 5.11 Hgb 15.3 Hct 44.4 MCV 87.0 MCH 29.9 MCHC 34.4 RDW 14.6 Plt Count 125 L Neut % (Auto) 76.0 H Lymph % (Auto) 12.6 L [place] % (Auto) 8.5 Eos % (Auto) 2.0 Baso % (Auto) 0.9 Neut # (Auto) 5400 Lymph # (Auto) 900 L [place] # (Auto) 600 Eos # (Auto) 100 Baso # (Auto) 100 D-Dimer Sodium Potassium Chloride Carbon Dioxide BUN Creatinine Estimated GFR BUN/Creatinine Ratio Glucose Lactate Calcium Ferritin Total Bilirubin AST ALT Alkaline Phosphatase Lactate Dehydrogenase Total Creatine Kinase CK-MB (CK-2) CK-MB (CK-2) Rel Index Troponin I C-Reactive Protein NT-Pro-B Natriuret Pep 733 H Total Protein Albumin Globulin Albumin/Globulin Ratio Procalcitonin TSH Urine Color Urine Appearance Urine pH Ur Specific [place] Urine Protein Urine Glucose (UA) Urine Ketones Urine Occult Blood Urine Nitrate Urine Bilirubin Urine Urobilinogen Ur Leukocyte Esterase Urine RBC Urine WBC Ur Squamous Epith Cells Urine Bacteria Ur Culture Indicated? COVID-19 PCR Influenza A (RT-PCR) Influenza B (RT-PCR) Assessment & Plan Assessment & Plan narrative: Impression 1. Sepsis secondary to E coli bacteremia source likely urinary tract given E coli g stain from the urine. -patient presented with acute metabolic encephalopathy secondary to her sepsis, she was febrile to 101, and hypoxic on admission -patient started on IV ceftriaxone, will await final cultures and sensitivity 2. Acute hypoxic respiratory failure -the patient with known COPD -patient also has obstructive sleep apnea, to bring CPAP in the CV Oxygenation has improved Will continue nebulizer treatment 3. Hypothyroid -continue L-thyroxine 4. Hypertension -continue metoprolol 5. Hyperlipidemia -continue statin Anticipate discharge home when the patient is no longer febrile, culture and sensitivity results have been obtained Quality VTE Deep Vein Thrombosis/Pulmonary Embolism Present on Admission: No
--- NOTE | 2020-03-13 15:13 | CM.DANOTE ---
Patient is a 79 year old female who was admitted on 03/12/20 for Fever. Pt has [facility] and [employer] for insurance and her PCP is Dr. Mona Houston. EMR was reviewed. Per MD, pt with hx of COPD and here with hypoxia and respiratory failure and also sepsis and on IV-Abx. Per RN, pt now able to transition to room air and has been able to ambulate to bathroom independently. SW met bedside with pt and explained role and she confirms that she lives at home in [place] with her and is quite independent and active at baseline. Pt does not have oxygen at home at baseline but was on oxygen at night until her sleep study showed it is not needed at this time. Pt is a Retired RN from [employer] and feels fairly knowledgeable in her medical needs. Pt denies any hx of HH or SNF and her spouse is retired and supportive if needed. Pt's DPOA's are Linda Gonzales and spouse. Pt preference is to d/c home soon when medically stable via spouse POV and no needs identified. Plan: SW to follow for likely pt d/c home with spouse when medically stable and any further identified discharge planning needs. RADHA Capone Discharge Planning/Care Management Advanced directive, confirm from CLINIC Start: 03/12/20 21:47 Freq: Q24H Status: Active Protocol: Document 03/13/20 09:31 CM (Rec: 03/13/20 09:31 CM [id number]) Advance Directive, confirm on record Time 09:31 Person contacted Pt. states they are on file in medical records. Copy received No CM Discharge Assessment Start: 03/13/20 15:11 Freq: Status: Active Protocol: Document 03/13/20 15:11 BF (Rec: 03/13/20 15:13 BF [id number]) Discharge Planning Assessment Assigned Coal Dumping Equipment Operator RADHA Rodrigues DPOA/Assigned Designee Name Linda and spouse Contact Information [phone] Advance Directives? Yes Advance Directives on File No History Provided By Patient,Medical Record Has Patient been admitted in last 30 No days? Prior Living Arrangements House Household Members spouse Type of transporation used prior to Drives own vehicle admit Independent with ADL's Yes Is patient alert and oriented? Yes Caregiver for Another No Barriers to Discharge No Discharge Plan Home Transportation Arrangement Spouse available to provide transport Referrals Initiated None needed Whiteboard Updated in Patient Room with Yes name and ext. # of Coal Dumping Equipment Operator Review Status In Process Please Provide Date Initial DC 03/13/20 Assessment Was Performed Next Review Type Continued Stay Review
[2020-03-13] MEDS: ASPIRIN EC 81 MG TABLET PO (20:20)
[2020-03-13] MEDS: ROSUVASTATIN 10 MG TABLET PO (20:20)
[2020-03-14 05:22] VITALS: BP 118/68; PULSE 67; RESP 16; TEMP 36.7; O2SAT 95
[2020-03-14] MEDS: LEVOTHYROXINE 75 MCG TABLET PO (06:06)
[2020-03-14 07:50] VITALS: BP 123/71; PULSE 64; RESP 18; TEMP 36.3; O2SAT 96
[2020-03-14] MEDS: ACETAMINOPHEN 325 MG TABLET PO ×2 (07:54→11:33)
[2020-03-14] MEDS: predniSONE 20 MG TABLET 40 MG PO (07:59)
[2020-03-14] MEDS: CYANOCOBALAMIN (VITAMIN B-12) 500 MCG TABLET 1000 MCG PO (07:59)
[2020-03-14] MEDS: METOPROLOL ER 25 MG TABLET PO (08:00)
[2020-03-14] MEDS: CALCIUM CARB/VIT D3 500/200 TABLET 1.5 EACH PO (08:00)
[2020-03-14] MEDS: AMLODIPINE 5 MG TABLET PO (08:00)
[2020-03-14] MEDS: CHOLECALCIFEROL (VITAMIN D3) 1,000 UNIT TABLET 2000 UNIT PO (08:01)
[2020-03-14] MEDS: TRIAMTERENE/HCTZ 37.5/25 TABLET 1 CAP PO (08:02)
[2020-03-14] MEDS: CEFTRIAXONE 2 GM/50 ML FROZ.PIGGY IV (08:04)
[2020-03-14] MEDS: FLUTICASONE PROPIONATE 250 MCG 250 EACH INH (08:49)
[2020-03-14] MEDS: TIOTROPIUM BROMIDE 18 MCG INHALER INH (08:49)
[2020-03-14 09:00] VITALS: PULSE 72; RESP 14; O2SAT 95
--- NOTE | 2020-03-14 11:14 | CM.DPC ---
DCP: continued: case received and met with pt during Team Rounds. Pt will d/c to home setting today and will followup with her PCP. She requests that her records be copied so she can take them to her auto care center manager. AUNG Tapia agrees to facilitate this for her.
[2020-03-14] MEDS: ESCITALOPRAM 10 MG TABLET PO (11:16)
--- NOTE | 2020-03-14 11:27 | PC.NURSE ---
Pt is dressed and ready for discharge home. Personal inhalers returned to Pt. IV and Tele removed. Went over d/c instructions, reviewed d/c meds, stroke education, and follow up. Pt denies further questions and is waiting for her Spouse to arrive to take her home.
--- NOTE | 2020-03-14 12:39 | PC.NURSE ---
Pt ready for discharge home with Spouse. Pt out via w/c by DISCHARGE DOOR OPERATOR to POV with Spouse and all belongings.
--- NOTE | 2020-03-14 16:16 | P.DS_ITS ---
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 Palumbo for similar pulmonary presenting symptoms. Today, quite suddenly in the afternoon she began experiencing shaking chills along with a temperature of 99.7? and mild delirium. On presentation to the emergency department her Covid test was negative along with Flue A and B. her white blood count was normal. Her BNP was elevated at 1020 along with a CRP of 1.7 and a D-dimer of 396 which age adjusted is just over the normal range (less than 385). Her chest x-ray showed no infiltrate or CHF. Her white blood count was only 10.5. At rest her saturation was 91% but on presentation with exertion shortly after the onset of her chills she was satting at 81%. She remained hypoxic with exertion so has been admitted for observation and stabilization. The procalcitonin is normal. The troponin is less than 0.01 to. She has no heart disease history. Lactic acid is 1.2. AST is 51 with ALT of 45 and a sodium of 132. The creatinine is 0.93 with a GFR of 58.5. My review of the chest x-ray is that she does have lung markings on the right lower lobe which radiology is reading as unchanged. On EKG she has sinus rhythm with left anterior fascicular block on my review. Discharge Providers Provider Date of admission: 03/13/20 09:16 Discharge Date: 03/14/20 Primary care physician: Mona Houston MD Discharge provider: Zuleyma Flores MD Summary Hospital Course Discharge Diagnosis: 1. E coli bacteremia 2. Urinary tract infection secondary to E coli 3. Sepsis, secondary to E coli, manifested as acute metabolic encephalopathy, now resolved 4. COPD exacerbation 5. Acute hypoxic respiratory failure, resolved 6 Hypertension 7. Hypothyroid Hospital Course: The patient was admitted to the hospital for shaking chills and fever. She was febrile to 101. According to her the patient was confus ed at home prior to admission. Upon admission to the hospital patient's blood cultures were positive for E coli. They were sensitive to ceftriaxone. The patient defervesced over the next 48 hours. Urine cultures were positive for E coli as well. The patient initially was short of breath with hypoxia. She was found to have a room air sat of 81%. Patient was admitted to the hospital given IV steroids, continued on her nebulizer treatment, and continued with IV antibiotics. She had improvement in her oxygenation and was able to manage her O2 sat on room air. She had no further wheezing. In addition the patient defervesced quite nicely. Overall patient felt significantly improved and was back to her baseline. She was deemed appropriate for discharge. Arrangements were made for her to be discharged home. Exam Vital Signs (past 8 hours): - 03/14/20 09:00 Pulse Rate 72 Respiratory Rate 14 Pulse Oximetry 95 Oxygen Delivery Method Room Air Oxygen Flow Rate 0 Narrative Exam Narrative: Pleasant female resting comfortably in no obvious distress Lungs: Decreased breath sounds but clear to auscultation Cardiac exam: Regular rate and rhythm normal S1-S2 Abdomen: Soft nontender nondistended, no CVA tenderness Extremities: No edema Objective Labs Result Diagrams: 03/13/20 04:53 03/13/20 04:53 Discharge Plan Discharge Plan Patient Disposition: Home Discharge orders & Medications Prescriptions: New prednisone 20 mg Tablet 40 mg PO DAILY 4 Days RF: 0 cefdinir 300 mg capsule 300 mg PO BID 7 Days Qty: 14 RF: 0 Continued calcium carbonate-vitamin D3 [Calcium with Vitamin D] 600 mg(1,500mg) -400 unit Tablet 1.5 tab PO DAILY Qty: 0 RF: 0 levothyroxine [Synthroid] 75 MCG tablet 1 tab PO QDAY Qty: 0 RF: 0 acetaminophen 325 MG tablet 325 mg PO PRN PRN (Reason: Pain (Scale Score 1-3)) Qty: 0 RF: 0 aspirin 81 MG tablet,delayed release (DR/EC) 81 mg PO HS Qty: 0 RF: 0 CHOLECALCIFEROL (VITAMIN D3) (Vitamin D-3) 2,000 iu PO Q DAY Qty: 0 RF: 0 Spiriva Respimat 2.5 MCG/ACTUATION mist 2 puff IH QAM Qty: 0 RF: 0 rosuvastatin [Crestor] 10 MG tablet 10 mg PO QHS Qty: 30 RF: 0 albuterol sulfate 90 mcg/actuation Hfa Aerosol Inhaler 2 puff INHALATION Q4H PRN (Reason: Shortness Of Breath) RF: 0 Flovent Diskus 250 mcg/actuation Blister With Device 1 inh INHALATION BID RF: 0 cyanocobalamin (vitamin B-12) 1,000 mcg Capsule 1,000 mcg PO DAILY RF: 0 Hizentra 10 gram/50 mL (20 %) Solution 10 g SUBCUT WEEKLY RF: 0 triamterene-hydrochlorothiazid 37.5-25 mg Tablet 1 tab PO DAILY RF: 0 metoprolol succinate 25 mg Tablet Extended Release 24 Hr 25 mg PO DAILY RF: 0 escitalopram oxalate [Lexapro] 10 mg Tablet 10 mg PO DAILY RF: 0 amlodipine 5 mg Tablet 5 mg PO DAILY RF: 0 No Action (DME) Respironics Dreamstation BIPAP Qty: 1 RF: 0 Follow up/Referrals: Mona Houston MD [Primary Care Provider] - Diet/Activity/Treatments Diet: Low-sodium and Low-cholesterol Skin/Wound/Dressing Care Report to your healthcare provider any signs of infection, such as:: chills, fever Visit Report/Discharge Packet Instructions: DI for Chronic Obstructive Pulmonary Disease, Physical Activity for People with COPD Visit Report Forms: Patient Portal/API, Stroke Signs & Symptoms Discharge Data Primary Care Provider: Mona Houston Discharges patient from system. Discharge Date/Time: 03/14/20 13:20 Quality VTE Deep Vein Thrombosis/Pulmonary Embolism Present on Admission: No
== END 2020-03-14 13:20 | disposition home or self-care (01) | DRG 871 ==
LOC: ED 16:24 → AC 20:50
PROVIDERS: Admitting Provider Family Medicine; Emergency Provider Student in an Organized Health Care Education/Training Program; Family Provider Physician Assistant; PCP Internal Medicine; Referring Provider Student in an Organized Health Care Education/Training Program; Visit Provider Family Medicine
DX: A41.51 Sepsis due to Escherichia coli [E. coli] (principal); J96.01 Acute respiratory failure with hypoxia; G93.41 Metabolic encephalopathy; N39.0 Urinary tract infection, site not specified; J44.1 Chronic obstructive pulmonary disease with (acute) exacerbation; D83.9 Common variable immunodeficiency, unspecified; R65.20 Severe sepsis without septic shock; F32.9 Major depressive disorder, single episode, unspecified; E78.5 Hyperlipidemia, unspecified; I10 Essential (primary) hypertension; E03.9 Hypothyroidism, unspecified; Z77.22 Contact with and (suspected) exposure to environmental tobacco smoke (acute) (chronic); Z03.818 Encounter for observation for suspected exposure to other biological agents ruled out
CPT/HCPCS: 36415; 71045; 80053; 81001; 82550; 82728; 83605; 83615; 83880; 84145; 84443; 84484; 85025; 85379; 86140; 87040; 87077; 87086; 87186; 87205; 87502; 87635; 93005; 94640; 94760; 94762; 99284; 99285; G0378; J0696

== ENCOUNTER 2020-04-26 13:04 | Emergency (ER) | payer MEDICARE, OTHER, SELFPAY ==
[2020-03-12 21:21] VITALS: BMI 33.6
[2020-04-26 13:30] VITALS: BP 123/63; PULSE 90; RESP 18; TEMP 37.8; O2SAT 94; BMI 34.9
--- NOTE | 2020-04-26 13:38 | DI.RAD.S_ITS ---
PROCEDURE: XR CHEST 2V INDICATIONS: shortness of breath TECHNIQUE: 2 views of the chest were acquired. COMPARISON: [facility], , XR CHEST 1V, 03/12/2020, 16:58. FINDINGS: Surgical changes and devices: None. Lungs and pleura: There is no focal infiltrate. Linear scarring in bilateral lower lung mcdaniel are seen. No pleural effusions or pneumothorax. Mediastinum: Mediastinal contours are normal. Heart size is normal. Bones and chest wall: No suspicious bony abnormalities. Soft tissues appear unremarkable. IMPRESSION: No acute cardiopulmonary pathology. Dictated by: Paresh Childs M.D. on 04/26/2020 at 14:52 Approved by: Paresh Childs M.D. on 04/26/2020 at 14:54
[2020-04-26 14:06] LABS: Add Manual Diff / Slide Review NO; Basophils Absolute Auto 0 /uL (0-100); Basophils Percent Auto 0.7 % (0-2); Eosinophils Absolute Auto 200 /uL (0-450); Eosinophils Percent Auto 3.8 % (2-4); Hematocrit 42.8 % (36-46); Hemoglobin 14.9 g/dL (12.0-16.0); Lymphocytes Absolute Auto 700 /uL (1100-4500); Lymphocytes Percent Auto 12.9 % (25-40); Mean Corpuscular HGB Conc 34.8 % (30-36); Mean Corpuscular Volume 86.2 fL (80-100); Monocytes Absolute Auto 600 /uL (0-900); Monocytes Percent Auto 10.5 % (3-14); Neutrophils Absolute Auto 4100 /uL (1500-7000); Neutrophils Percent Auto 72.1 % (50-75); Platelet Count 148 X10^3/uL (150-400); Red Blood Cell Count 4.96 X10^6/uL (4.0-5.2); Red Cell Distribution Width 15.8 % (11.6-14.8); White Blood Cell Count 5.7 X10^3/uL (4.5-11.0)
[2020-04-26 14:14] LABS: Lactate (Lactic Acid) 1.3 mmol/L (0.7-2.1)
[2020-04-26 14:15] LABS: Alanine Aminotransferase 26 IU/L (<35); Albumin 4.2 g/dL (3.5-5.0); Albumin Globulin Ratio 1.4 (1.0-2.8); Alkaline Phosphatase 73 U/L (38-126); Aspartate Aminotransferase 52 IU/L (14-36); BUN Creatinine Ratio 30.9 (6-22); Blood Urea Nitrogen 29 mg/dL (7-17); Calcium 9.4 mg/dL (8.4-10.2); Carbon Dioxide 26 mmol/L (22-32); Chloride 98 mmol/L (98-107); Estimated Glomerular Filt Rate 57.7 mL/min (>60); Globulin 3.1 g/dL (1.7-4.1); Glucose 134 mg/dL (80-110); HEMOLYSIS < 15 (0-50); Potassium 3.6 mmol/L (3.4-5.1); Sodium 132 mmol/L (137-145); Total Protein 7.3 g/dL (6.3-8.2)
--- NOTE | 2020-04-26 14:35 | ED_ITS ---
HPI - SOB/Dyspnea General Chief Complaint: Shortness of Breath/Dyspnea Stated Complaint: doctor thinks she might have pneumonia Time Seen by Provider: 04/26/20 14:32 Source: patient Mode of arrival: Family Vehicle Limitations: no limitations History of Present Illness HPI Narrative: Patient is a 79-year-old female with history of COPD presenting with cough fever and body aches ongoing for the last 4 days. She says actually for about the last week she and her have both not felt well they had outpatient COVID test 4 days ago but they do not have the result. is actually feeling better. She however is still not feeling well she has low- grade fever here cough but is nonproductive she has some shortness of breath. She has not needed to use her inhalers any more than usual. She denies any edith st pain or heart palpitations no orthopnea she denies any swelling in her legs MD Complaint: shortness of breath and cough Onset (ago): day(s) Related Data Home Medications Medication Instructions Recorded Confirmed calcium carbonate-vitamin D3 1.5 tab PO DAILY #0 02/07/09 03/12/20 [Calcium with Vitamin D] CHOLECALCIFEROL (VITAMIN D3) 2,000 iu PO Q DAY #0 12/24/11 03/12/20 (Vitamin D-3) acetaminophen 325 mg PO PRN PRN #0 12/24/11 03/12/20 aspirin 81 mg PO HS #0 12/24/11 03/12/20 levothyroxine [Synthroid] 1 tab PO QDAY #0 12/24/11 03/12/20 Spiriva Respimat 2 puff IH QAM #0 10/01/17 03/12/20 triamterene-hydrochlorothiazid 1 tab PO DAILY 04/28/18 03/12/20 metoprolol succinate 25 mg PO DAILY 06/23/18 03/12/20 amlodipine 5 mg PO DAILY 03/02/19 03/12/20 escitalopram oxalate [Lexapro] 10 mg PO DAILY 03/02/19 03/12/20 Respironics Dreamstation BIPAP #1 ea 08/15/19 03/12/20 Flovent Diskus 1 inh INHALATION BID 03/12/20 03/12/20 Hizentra 10 g SUBCUT WEEKLY 03/12/20 03/12/20 albuterol sulfate 2 puff INHALATION Q4H PRN 03/12/20 03/12/20 cyanocobalamin (vitamin B-12) 1,000 mcg PO DAILY 03/12/20 03/12/20 Previous Rx's Medication Instructions Recorded rosuvastatin [Crestor] 10 mg PO QHS #30 tab 12/23/17 Allergies Allergy/AdvReac Type Severity Reaction Status Date / Time Sulfa (Sulfonamide Allergy Unknown Verified 04/26/20 13:36 Antibiotics) [SULFA (SULFONAMIDE ANTIBIOTICS)] ciprofloxacin [From CIPRO] AdvReac Intermediate GEOGRAPHIC Verified 04/26/20 13:36 TONGUE diltiazem [DILTIAZEM] AdvReac Unknown SEVERE Verified 04/26/20 13:36 PALPITATIONS lisinopril [LISINOPRIL] AdvReac Unknown COUGH Verified 04/26/20 13:36 losartan AdvReac Hypertension Verified 04/26/20 13:36 Headache Review of Systems Review of Systems Narrative: GENERAL: Denies chills, fatigue, malaise, fever, sweats, travel HEENT: Denies sinus pain, ear pain, sore throat, difficulty swallowing, neck pain RESPIRATORY: Denies dyspnea, cough, wheezing, hemoptysis, sputum. CARDIOVASCULAR: Denies chest pain, palpitations, orthopnea, edema GASTROINTESTINAL: Denies nausea, vomiting, abdominal pain, diarrhea, constipation, melena. : Denies dysuria, frequency, incontinence, hematuria, urinary retention, flank pain. MUSCULOSKELETAL: Denies weakness, joint pain, or bony pain SKIN: No rash, no erythema, no pruritus NEUROLOGIC: Denies weakness, dizziness, headache, numbness, change in speech, confusion PSYCHIATRIC: No concerning psychosocial issues. 12 point review of systems is negative except for those stated above and HPI Patient History Medical History (Updated 04/26/20 @ 17:24 by Halle Crowder DO) COPD (chronic obstructive pulmonary disease) (Acute) CVID (common variable immunodeficiency) (Acute) Depression (Acute) Hyperlipidemia (Acute) Hypertension (Acute) Hypothyroidism (Acute) Surgical History (Updated 03/12/20 @ 21:42 by Sondra Law MD) History of hysterectomy (Acute) Hx of tonsillectomy (Acute) Social History household members: spouse Smoking Status: Never smoker alcohol intake: current Smoking Status: Never smoker alcohol intake frequency: 0-2 drinks per day Substance Use Type: does not use Exam Initial Vital Signs Initial Vital Signs: Vital Signs Temperature 100.1 F H 04/26/20 13:30 Pulse Rate 90 04/26/20 13:30 Respiratory Rate 18 04/26/20 13:30 Blood Pressure 123/63 04/26/20 13:30 Pulse Oximetry 94 04/26/20 13:30 GENERAL: Alert female and in no acute distress. HEENT: Head atraumatic,EOMI, pupils reactive, face symmetric, moist mucous membranes CARDIOVASCULAR: Regular rate and rhythm without murmurs, rubs or gallops. RESPIRATORY: Breath sounds equal bilaterally, no wheezes rales or rhonchi. Speaks in full sentences ABDOMEN: Soft, nontender. Normoactive bowel sounds all 4 quadrants. No guarding or rebound. : No CVA tenderness EXTREMITIES: Normal range of motion, no clubbing or edema. Neurovascularly intact NEUROLOGICAL: Alert and oriented x4.Normal gait and speech. Cranial nerves II through XII grossly intact. SKIN: Petechiae noted on the lower extremities only, no erythema rash Course Orders Ordered: ED Orders 04/26/20 13:38 XR chest 2V Stat EKG-12 Lead Stat Measure peak expiratory flow ONCE RT Consult Eval and Treat Now 04/26/20 13:54 C-Reactive Protein Quant Stat Complete Blood Count AUTO DIFF Stat Comprehensive Metabolic Panel Stat D Dimer Stat Ferritin Stat Lactate (Lactic Acid) Stat NT-proBNP (BNP-Adult 18+) Stat Troponin & CK Cardiac Panel Stat 04/26/20 15:49 CT angio chest PE protocol Stat Vital Signs Vital signs: Vital Signs - 8 hr 04/26/20 13:30 04/26/20 15:09 04/26/20 15:13 Temperature 100.1 F H Pulse Rate 90 89 86 Respiratory Rate 18 23 Blood Pressure 123/63 141/68 H Pulse Oximetry 94 94 94 04/26/20 15:30 Temperature Pulse Rate 84 Respiratory Rate 22 Blood Pressure 139/66 Pulse Oximetry 93 MDM - SOB/Dyspnea Lab Data Attestation: I reviewed the patient's lab results. Result diagrams: 04/26/20 13:54 04/26/20 13:54 Labs: Lab Results 07/17/20 07/17/20 07/17/20 Range/Units 13:54 13:54 13:54 WBC 5.7 (4.5-11.0) X10^3/uL RBC 4.96 (4.0-5.2) X10^6/uL Hgb 14.9 (12.0-16.0) g/dL Hct 42.8 (36-46) % MCV 86.2 (80-100) fL MCH 30.0 (26-34) PG MCHC 34.8 (30-36) % RDW 15.8 H (11.6-14.8) % Plt Count 148 L (150-400) X10^3/uL Neut % (Auto) 72.1 (50-75) % Lymph % (Auto) 12.9 L (25-40) % [place] % (Auto) 10.5 (3-14) % Eos % (Auto) 3.8 (2-4) % Baso % (Auto) 0.7 (0-2) % Neut # (Auto) 4100 (1410-7891) /uL Lymph # (Auto) 700 L (0988-3355) /uL [place] # (Auto) 600 (0-900) /uL Eos # (Auto) 200 (0-450) /uL Baso # (Auto) 0 (0-100) /uL D-Dimer (<230) ng/mL Sodium 132 L (137-145) mmol/L Potassium 3.6 (3.4-5.1) mmol/L Chloride 98 (98-107) mmol/L Carbon Dioxide 26 (22-32) mmol/L BUN 29 H (7-17) mg/dL Creatinine 0.94 (0.52-1.04) mg/dL Estimated GFR 57.7 L (>60) mL/min BUN/Creatinine Ratio 30.9 H (6-22) Glucose 134 H (80-110) mg/dL Lactate 1.3 (0.7-2.1) mmol/L Calcium 9.4 (8.4-10.2) mg/dL Ferritin (11-264) ng/mL Total Bilirubin 1.0 (0.2-1.3) mg/dL AST 52 H (14-36) IU/L ALT 26 (<35) IU/L Alkaline Phosphatase 73 (38-126) U/L Total Creatine Kinase (30-135) U/L CK-MB (CK-2) CK-MB (CK-2) Rel Index Troponin I (0.01-0.034) ng/mL C-Reactive Protein (<1.0) mg/dL NT-Pro-B Natriuret Pep (<450) pg/mL Total Protein 7.3 (6.3-8.2) g/dL Albumin 4.2 (3.5-5.0) g/dL Globulin 3.1 (1.7-4.1) g/dL Albumin/Globulin Ratio 1.4 (1.0-2.8) 04/26/20 04/26/20 Range/Units 13:54 13:54 WBC (4.5-11.0) X10^3/uL RBC (4.0-5.2) X10^6/uL Hgb (12.0-16.0) g/dL Hct (36-46) % MCV (80-100) fL MCH (26-34) PG MCHC (30-36) % RDW (11.6-14.8) % Plt Count (150-400) X10^3/uL Neut % (Auto) (50-75) % Lymph % (Auto) (25-40) % [place] % (Auto) (3-14) % Eos % (Auto) (2-4) % Baso % (Auto) (0-2) % Neut # (Auto) (8989-4760) /uL Lymph # (Auto) (7751-1033) /uL [place] # (Auto) (0-900) /uL Eos # (Auto) (0-450) /uL Baso # (Auto) (0-100) /uL D-Dimer 436 H (<230) ng/mL Sodium (137-145) mmol/L Potassium (3.4-5.1) mmol/L Chloride (98-107) mmol/L Carbon Dioxide (22-32) mmol/L BUN (7-17) mg/dL Creatinine (0.52-1.04) mg/dL Estimated GFR (>60) mL/min BUN/Creatinine Ratio (6-22) Glucose (80-110) mg/dL Lactate (0.7-2.1) mmol/L Calcium (8.4-10.2) mg/dL Ferritin 108 (11-264) ng/mL Total Bilirubin (0.2-1.3) mg/dL AST (14-36) IU/L ALT (<35) IU/L Alkaline Phosphatase (38-126) U/L Total Creatine Kinase 42 (30-135) U/L CK-MB (CK-2) TNP CK-MB (CK-2) Rel Index TNP Troponin I < 0.012 (0.01-0.034) ng/mL C-Reactive Protein 2.2 H (<1.0) mg/dL NT-Pro-B Natriuret Pep 188 (<450) pg/mL Total Protein (6.3-8.2) g/dL Albumin (3.5-5.0) g/dL Globulin (1.7-4.1) g/dL Albumin/Globulin Ratio (1.0-2.8) Imaging Data Chest x-ray: Radiologist's Impression: PROCEDURE: XR CHEST 2V INDICATIONS: shortness of breath TECHNIQUE: 2 views of the chest were acquired. COMPARISON: [facility], CR, XR CHEST 1V, 03/12/2020, 16:58. FINDINGS: Surgical changes and devices: None. Lungs and pleura: There is no focal infiltrate. Linear scarring in bilateral lower lung mcdaniel are seen. No pleural effusions or pneumothorax. Mediastinum: Mediastinal contours are normal. Heart size is normal. Bones and chest wall: No suspicious bony abnormalities. Soft tissues appear unremarkable. IMPRESSION: No acute cardiopulmonary pathology. Dictated by: Paresh Childs M.D. on 04/26/2020 at 14:52 CT scan - chest: Radiologist's Impression: PROCEDURE: CT ANGIO CHEST PE PROTOCOL INDICATIONS: sob with + dimer TECHNIQUE: After the administration of intravenous contrast, 2 mm thick sections acquired from the pulmonary apices to the posterior costophrenic angles. 3-dimensional maximum intensity projection (MIP) coronal and sagittal reformats were then acquired through the thorax. For radiation dose reduction, the following was used: automated exposure control, adjustment of mA and/or kV according to patient size. COMPARISON: [facility], CT, CHEST HIGH RESOLUTION, 08/22/2010, 11:33. FINDINGS: Image quality: Excellent. Pulmonary arteries: Pulmonary arteries are normal in size, and demonstrate no intraluminal filling defects to suggest central pulmonary embolism. Lungs and pleura: Mild to moderate centrilobular emphysema is noted. Scarring/atelectasis are seen scattered in bilateral lower lung mcdaniel. 5 mm solid nodule is seen in central portion of right lung base series 5, image 210. This was not definitively seen on previous study in 2010. No pleural effusions or pneumothorax. Central and peripheral airways are patent. Mediastinum: Heart size is normal, without pericardial effusion. No mediastinal or hilar adenopathy. Thoracic aorta is normal in caliber and enhancement. Esophagus is normal in caliber, without hiatal hernia. Bones and chest wall: No suspicious bony lesions. Bilateral ribs are grossly intact. Degenerative disc disease throughout thoracic spine is seen with mild levosco liosis of mid to lower thoracic spine. No acute compression fracture or spondylolisthesis. Thyroid gland is within normal limits. No axillary or supraclavicular adenopathy. Abdomen: Tiny well-circumscribed hypodensities are noted in right hepatic lobe measures up to 1 cm in size in posterior right hepatic lobe and up to 6 mm in size in right hepatic dome. Finding may represent hepatic cysts. Mild splenomegaly is seen. IMPRESSION: 1. No pulmonary emboli. No thoracic aortic aneurysm or dissection. No mediastinal or hilar lymphadenopathy. 2. Moderate centrilobular emphysema. Bibasilar scarring/atelectasis. Tiny 5 mm soft tissue density nodule seen in right lung base. Follow-up CT in 12 months is recommended for evaluation of stability. 3. Well-circumscribed hypodensities seen in right hepatic lobe as above and may represent hepatic cysts. Mild splenomegaly. Dictated by: Paresh Childs M.D. on 04/26/2020 at 16:59 Approved by: Paresh Childs M.D. on 04/26/2020 at 17:12 ECG Data Attestation: I personally reviewed and interpreted this ECG as follows: Prior ECG tracings: available for review Interpretation: Normal sinus rhythm rate 87 p.r. interval 182 QRS [address] elevation depression or T-wave inversions similar to previous EKG MDM Narrative Medical decision making narrative: D-dimer is slightly elevated with history of shortness of breath and in no other markers for COVID-[address] for PE. CT is negative. Patient is not wheezing or hypoxic, COVID test is pending. She says she has albuterol inhaler at home. At this time will hold off on steroids until COVID- 19 test is returned. I discussed all findings with the patient, Education has been performed regarding treatment plan, diagnosis, warning signs and symptoms and all concerns have been addressed. Verbally agree with and understood all of the above. Discharge Plan Departure Patient Disposition: Home Clinical Impression: COPD (chronic obstructive pulmonary disease) Qualifiers: COPD type: COPD with acute exacerbation Qualified Code(s): J44.1 - Chronic obstructive pulmonary disease with (acute) exacerbation Discharge Date/Time: 04/26/20 17:46 Instructions: Chronic Obstructive Pulmonary Disease, Coronavirus Disease 2019, Can COVID-19 be prevented? Activity Restrictions/Additional Instructions: *You have been diagnosed with COPD exacerbation *What to do: [place] open test is pending and will be back in 48 hours you will be notified of the results. Please self isolate until results are in My this is likely a virus causing exacerbation of her COPD *Continue to take medications as directed Albuterol inhaler 1-2 puffs every 4 hours with spacer if needed *Follow up with your primary care provider in 2-3 days *Return to ER if you should have increasing shortness of breath, fever, confusion, body aches, decreased intake or any new, worsening or concerning symptoms CDC Guidelines for home isolation: - Stay away from others - Limit contact with pets and animals: If you must care for a pet, wash your hands before and after interacting with them - Wear a mask if you are sick - Cover your mouth and nose with a tissue when you cough or sneeze. Dispose of tissues in a lined trash can and wash your hands immediately with soap and water for at least 20 seconds. If soap and water are not available, clean hands with alcohol-based hand philosophy faculty member that contains at least 60% alcohol. - Clean your hands often with soap and water for at least 20 seconds - Avoid touching your eyes, nose and mouth with unwashed hands - Do not share dishes, drinking glasses, cups, eating utensils, towels, or bedding with other people in your home. After using these items, wash them thoroughly with soap and water or put in the software quality analyst. - Clean high-touch surfaces in your isolation area (?sick room? and bathroom) every day; let a caregiver clean and disinfect high-touch surfaces in other areas of the home. Clean the area or item with soap and water or another detergent if it is dirty. Then, use a household disinfectant. Seek medical attention, but call first: - Seek medical care right away if your illness is worsening (for example, if you have difficulty breathing). - Call your doctor before going in: Before going to the doctor?s office or emergency room, call ahead and tell them your symptoms. They will tell you what to do. - If possible, put on a facemask before you enter the building. If you can?t put on a facemask, try to keep a safe distance from other people (at least 6 feet away). This will help protect the people in the office or waiting room. - Follow care instructions from your healthcare provider and local health department: Your local health authorities will give instructions on checking your symptoms and reporting information. Emergency warning signs for COVID-19: - Difficulty breathing or shortness of breath - Persistent pain or pressure in the chest - New confusion or inability to arouse - Bluish lips or face Prescriptions: No Action calcium carbonate-vitamin D3 [Calcium with Vitamin D] 600 mg(1,500mg) -400 unit Tablet 1.5 tab PO DAILY Qty: 0 RF: 0 levothyroxine [Synthroid] 75 MCG tablet 1 tab PO QDAY Qty: 0 RF: 0 acetaminophen 325 MG tablet 325 mg PO PRN PRN (Reason: Pain (Scale Score 1-3)) Qty: 0 RF: 0 aspirin 81 MG tablet,delayed release (DR/EC) 81 mg PO HS Qty: 0 RF: 0 CHOLECALCIFEROL (VITAMIN D3) (Vitamin D-3) 2,000 iu PO Q DAY Qty: 0 RF: 0 Spiriva Respimat 2.5 MCG/ACTUATION mist 2 puff IH QAM Qty: 0 RF: 0 rosuvastatin [Crestor] 10 MG tablet 10 mg PO QHS Qty: 30 RF: 0 albuterol sulfate 90 mcg/actuation Hfa Aerosol Inhaler 2 puff INHALATION Q4H PRN (Reason: Shortness Of Breath) RF: 0 Flovent Diskus 250 mcg/actuation Blister With Device 1 inh INHALATION BID RF: 0 cyanocobalamin (vitamin B-12) 1,000 mcg Capsule 1,000 mcg PO DAILY RF: 0 Hizentra 10 gram/50 mL (20 %) Solution 10 g SUBCUT WEEKLY RF: 0 triamterene-hydrochlorothiazid 37.5-25 mg Tablet 1 tab PO DAILY RF: 0 metoprolol succinate 25 mg Tablet Extended Release 24 Hr 25 mg PO DAILY RF: 0 escitalopram oxalate [Lexapro] 10 mg Tablet 10 mg PO DAILY RF: 0 amlodipine 5 mg Tablet 5 mg PO DAILY RF: 0 (DME) RespirAdype Dreamstation BIPAP Qty: 1 RF: 0 Referrals: Mona Houston MD [Primary Care Provider] -
[2020-04-26 15:09] VITALS: PULSE 89; O2SAT 94
[2020-04-26 15:13] VITALS: BP 141/68; PULSE 86; RESP 23; O2SAT 94
[2020-04-26 15:14] LABS: D Dimer 436 ng/mL (<230)
[2020-04-26 15:19] LABS: C-Reactive Protein Quant 2.2 mg/dL (<1.0); Creatine Kinase 42 U/L (30-135)
[2020-04-26 15:29] LABS: NT-proBNP (BNP-Adult 18+) 188 pg/mL (<450); Troponin I < 0.012 ng/mL (0.01-0.034)
[2020-04-26 15:30] VITALS: BP 139/66; PULSE 84; RESP 22; O2SAT 93
--- NOTE | 2020-04-26 15:49 | DI.CT.S_ITS ---
PROCEDURE: CT ANGIO CHEST PE PROTOCOL INDICATIONS: sob with + dimer TECHNIQUE: After the administration of intravenous contrast, 2 mm thick sections acquired from the pulmonary apices to the posterior costophrenic angles. 3-dimensional maximum intensity projection (MIP) coronal and sagittal reformats were then acquired through the thorax. For radiation dose reduction, the following was used: automated exposure control, adjustment of mA and/or kV according to patient size. COMPARISON: [facility], CT, CHEST HIGH RESOLUTION, 08/22/2010, 11:33. FINDINGS: Image quality: Excellent. Pulmonary arteries: Pulmonary arteries are normal in size, and demonstrate no intraluminal filling defects to suggest central pulmonary embolism. Lungs and pleura: Mild to moderate centrilobular emphysema is noted. Scarring/atelectasis are seen scattered in bilateral lower lung mcdaniel. 5 mm solid nodule is seen in central portion of right lung base series 5, image 210. This was not definitively seen on previous study in 2009. No pleural effusions or pneumothorax. Central and peripheral airways are patent. Mediastinum: Heart size is normal, without pericardial effusion. No mediastinal or hilar adenopathy. Thoracic aorta is normal in caliber and enhancement. Esophagus is normal in caliber, without hiatal hernia. Bones and chest wall: No suspicious bony lesions. Bilateral ribs are grossly intact. Degenerative disc disease throughout thoracic spine is seen with mild levoscoliosis of mid to lower thoracic spine. No acute compression fracture or spondylolisthesis. Thyroid gland is within normal limits. No axillary or supraclavicular adenopathy. Abdomen: Tiny well-circumscribed hypodensities are noted in right hepatic lobe measures up to 1 cm in size in posterior right hepatic lobe and up to 6 mm in size in right hepatic dome. Finding may represent hepatic cysts. Mild splenomegaly is seen. IMPRESSION: 1. No pulmonary emboli. No thoracic aortic aneurysm or dissection. No mediastinal or hilar lymphadenopathy. 2. Moderate centrilobular emphysema. Bibasilar scarring/atelectasis. Tiny 5 mm soft tissue density nodule seen in right lung base. Follow-up CT in 12 months is recommended for evaluation of stability. 3. Well-circumscribed hypodensities seen in right hepatic lobe as above and may represent hepatic cysts. Mild splenomegaly. Dictated by: Paresh Childs M.D. on 04/26/2020 at 16:59 Approved by: Paresh Childs M.D. on 04/26/2020 at 17:12
[2020-04-26 15:52] LABS: Ferritin 108 ng/mL (11-264)
[2020-04-29 09:08] LABS: COVID19 Sendout Not Detected (Not Detected)
== END 2020-04-26 17:46 | disposition home or self-care (01) ==
PROVIDERS: Emergency Provider Emergency Medicine; Family Provider Physician Assistant; PCP Internal Medicine
DX: J44.9 Chronic obstructive pulmonary disease, unspecified (principal); R06.02 Shortness of breath; Z03.818 Encounter for observation for suspected exposure to other biological agents ruled out
CPT/HCPCS: 36415; 71046; 71275; 80053; 82550; 82728; 83605; 83880; 84484; 85025; 85379; 86140; 87635; 93005; 93010; 99284; Q9967

== ENCOUNTER → 2020-12-26 09:43 | Outpatient (CLI) | payer MEDICARE, OTHER, SELFPAY ==
[2020-03-12 21:21] VITALS: BMI 33.6
[2020-12-26 10:19] LABS: Add Manual Diff / Slide Review NO; Basophils Absolute Auto 100 /uL (0-100); Eosinophils Absolute Auto 400 /uL (0-450); Eosinophils Percent Auto 6.2 % (2-4); Hematocrit 44.8 % (36-46); Hemoglobin 15.2 g/dL (12.0-16.0); Lymphocytes Absolute Auto 1600 /uL (1100-4500); Lymphocytes Percent Auto 21.5 % (25-40); Mean Corpuscular HGB Conc 33.9 % (30-36); Mean Corpuscular Hemoglobin 29.7 PG (26-34); Mean Corpuscular Volume 87.6 fL (80-100); Monocytes Absolute Auto 600 /uL (0-900); Monocytes Percent Auto 7.9 % (3-14); Neutrophils Absolute Auto 4600 /uL (1500-7000); Neutrophils Percent Auto 63.4 % (50-75); Platelet Count 211 X10^3/uL (150-400); Red Blood Cell Count 5.11 X10^6/uL (4.0-5.2); Red Cell Distribution Width 14.3 % (11.6-14.8); White Blood Cell Count 7.2 X10^3/uL (4.5-11.0)
[2020-12-26 10:28] LABS: Alanine Aminotransferase 30 IU/L (<35); Albumin 4.5 g/dL (3.5-5.0); Albumin Globulin Ratio 1.4 (1.0-2.8); Alkaline Phosphatase 66 U/L (38-126); Aspartate Aminotransferase 49 IU/L (14-36); BUN Creatinine Ratio 26.8 (6-22); Bilirubin Total 0.6 mg/dL (0.2-1.3); Blood Urea Nitrogen 22 mg/dL (7-17); Calcium 9.4 mg/dL (8.4-10.2); Carbon Dioxide 31 mmol/L (22-32); Chloride 100 mmol/L (98-107); Cholesterol 147 mg/dL (140-199); Estimated Glomerular Filt Rate > 60.0 mL/min (>60); Globulin 3.3 g/dL (1.7-4.1); Glucose 100 mg/dL (80-110); HDL Cholesterol 45 mg/dL (40-60); HEMOLYSIS < 15 (0-50); LDL Cholesterol Calculated 77 mg/dL (<100); Potassium 3.5 mmol/L (3.4-5.1); Sodium 136 mmol/L (137-145); Total Protein 7.8 g/dL (6.3-8.2); Triglycerides 125 mg/dL (35-150)
[2020-12-26 11:26] LABS: TSH w/ Reflex to FT4 5.51 uIU/mL (0.47-4.68)
[2020-12-26 11:55] LABS: Free T4, Direct Thyroxine 1.37 ng/dL (0.78-2.19)
== END ==
PROVIDERS: Family Provider Physician Assistant; PCP Internal Medicine; Referring Provider Internal Medicine; Visit Provider Internal Medicine
DX: E66.9 Obesity, unspecified (principal); I10 Essential (primary) hypertension; E03.9 Hypothyroidism, unspecified; E78.5 Hyperlipidemia, unspecified
CPT/HCPCS: 36415; 80053; 80061; 84439; 84443; 85025

== ENCOUNTER → 2021-07-21 09:38 | Outpatient (CLI) | payer MEDICARE, OTHER, SELFPAY ==
[2020-03-12 21:21] VITALS: BMI 33.6
--- NOTE | 2021-07-21 | DI.RAD.S_ITS ---
PROCEDURE: XR DEXA AXIAL SKELETON INDICATIONS: Age-related osteoporosis without current pathologi COMPARISON: None. FINDINGS: This blank DEXA report has been sent in error by the PACS system. The correct and complete report will be forthcoming in 1-2 days. Thank you for your patience and understanding. Dictated by: Tanja March MD, PhD on 07/21/2021 at 10:44 Approved by: Tanja March MD, PhD on 07/21/2021 at 10:44
== END ==
PROVIDERS: Family Provider Physician Assistant; PCP Internal Medicine; Referring Provider Internal Medicine; Visit Provider Internal Medicine
DX: Z78.0 Asymptomatic menopausal state (principal)
CPT/HCPCS: 77080

== ENCOUNTER 2021-07-30 17:49 | Emergency (ER) | payer MEDICARE, OTHER, SELFPAY ==
[2020-03-12 21:21] VITALS: BMI 33.6
[2021-07-30] VITALS (9 sets, daily range): BP systolic 147–194; BP diastolic 66–93; PULSE 64–82; RESP 16–24; TEMP 36.6; O2SAT 92–95; BMI 35.4
--- NOTE | 2021-07-30 18:24 | ED_ITS ---
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 She typically wakes up with of moderate cough that goes away with her inhalers. She is noticing that over the last couple of days the cough is been waking her still resolves with the inhalers but today was worse and she comes in for further evaluation. She notes that typically she end up with an upper respiratory infection in the fall but has not had issues in the last 2 years. She is vaccinated with her booster done. She describes mild myalgias and headachy feeling but no significant fevers, her cough is nonproductive, no vomiting nausea abdominal pain, no palpitations no orthopnea. She has not noticed increased lower extremity edema and does wear compression socks for her varicose veins. Related Data Home Medications Medication Instructions Recorded Confirmed calcium carbonate 600 mg (1,500 1.5 tab PO DAILY #0 02/07/09 02/11/21 mg)-vitamin D3 400 unit tablet (Calcium with Vitamin D) CHOLECALCIFEROL (VITAMIN D3) 2,000 iu PO Q DAY #0 12/24/11 02/11/21 (Vitamin D-3) acetaminophen 325 mg tablet 325 mg PO PRN PRN #0 12/24/11 02/11/21 aspirin 81 mg tablet,delayed 81 mg PO HS #0 12/24/11 02/11/21 release levothyroxine 75 mcg tablet 1 tab PO QDAY #0 12/24/11 02/11/21 (Synthroid) tiotropium bromide 2.5 2 puff IH QAM #0 10/01/17 02/11/21 mcg/actuation mist for inhalation (Spiriva Respimat) triamterene 37.5 1 tab PO DAILY 04/28/18 02/11/21 mg-hydrochlorothiazide 25 mg tablet metoprolol succinate 25 mg 25 mg PO DAILY 06/23/18 02/11/21 tablet,extended release 24 hr amlodipine 5 mg tablet 5 mg PO DAILY 03/02/19 02/11/21 escitalopram oxalate 10 mg tablet 10 mg PO DAILY 03/02/19 02/11/21 (Lexapro) Respironics Dreamstation BIPAP #1 ea 08/15/19 02/11/21 albuterol sulfate 90 mcg/actuation 2 puff INHALATION Q4H PRN 03/12/20 02/11/21 aerosol inhaler cyanocobalamin (vitamin B-12) 1,000 mcg PO DAILY 03/12/20 02/11/21 1,000 mcg capsule fluticasone propionate 250 1 inh INHALATION BID 03/12/20 02/11/21 mcg/actuation blister powder for inhalation (Flovent Diskus) immun glob G 10 gram/50 mL(20 10 g SUBCUT WEEKLY 03/12/20 02/11/21 %)-pro-IgA 0-50 mcg/mL subcutaneous soln (Hizentra) Previous Rx's Medication Instructions Recorded rosuvastatin 10 mg tablet (Crestor) 10 mg PO QHS #30 tab 12/23/17 Allergies Allergy/AdvReac Type Severity Reaction Status Date / Time Sulfa (Sulfonamide Allergy Unknown Verified 07/30/21 17:59 Antibiotics) [SULFA (SULFONAMIDE ANTIBIOTICS)] ciprofloxacin [From CIPRO] AdvReac Intermediate GEOGRAPHIC Verified 07/30/21 17:59 TONGUE diltiazem [DILTIAZEM] AdvReac Unknown SEVERE Verified 07/30/21 17:59 PALPITATIONS lisinopril [LISINOPRIL] AdvReac Unknown COUGH Verified 07/30/21 17:59 losartan AdvReac Hypertension Verified 07/30/21 17:59 Headache Review of Systems Review of Systems Narrative: Remainder of complete review of systems is otherwise unremarkable except for that included in the HPI. Patient History Medical History COPD (chronic obstructive pulmonary disease) CVID (common variable immunodeficiency) Depression Hyperlipidemia Hypertension Hypothyroidism Obstructive sleep apnea, adult Surgical History History of hysterectomy Hx of tonsillectomy Social History household members: spouse Smoking Status: Never smoker alcohol intake: current Smoking Status: Never smoker alcohol intake frequency: 0-2 drinks per day Substance Use Type: does not use Exam Narrative Exam Narrative: General: Healthy appearing, in no acute distress. Able to give a complete and coherent history. Well-nourished well-developed HEENT: Moist mucous membranes, normal sclera with reactive pupils, Neck: No JVD, supple Respiratory: Lungs mild end expiratory wheeze in lower lung mcdaniel but no rales no rhonchi. Full and symmetrical air movement Cardiac: Regular rate and rhythm no murmurs no bruits Abdomen: Soft, nontender, good bowel tones, no flank pain Skin: Warm and dry, no rashes Neurologic: Grossly neurologically intact with no obvious asymmetries or abnormalities Extremities: No trauma, well perfused Psych: Cooperative, appropriate insight and affect Initial Vital Signs Initial Vital Signs: Vital Signs Temperature 97.8 F 07/30/21 17:54 Pulse Rate 82 07/30/21 17:54 Respiratory Rate 16 07/30/21 17:54 Blood Pressure 180/76 H 07/30/21 17:54 Pulse Oximetry 95 07/30/21 17:54 Course Orders Ordered: ED Orders 07/30/21 18:00 COVID19 -Nasal swab/Pre-Proc Stat 07/30/21 18:26 XR chest 1V Stat 07/30/21 18:40 Complete Blood Count AUTO DIFF Stat Comprehensive Metabolic Panel Stat Magnesium Stat NT-proBNP (BNP-Adult 18+) Stat Troponin I Stat Discontinued Medications Albuterol/Ipratropium (Albuterol/Ipratropium 3 Ml Ampul) 3 ml INH NOW ONE Stop: 07/30/21 18:52 Last Admin: 07/30/21 19:19 Dose: 3 ml Documented by: NORMA Methylprednisolone (Methylprednisolone 125 Mg/2 Ml Vial) 60 mg IV NOW ONE Stop: 07/30/21 20:20 Last Admin: 07/30/21 20:28 Dose: 60 mg Documented by: Vital Signs Vital signs: Vital Signs - 8 hr 07/30/21 17:54 07/30/21 18:17 07/30/21 18:30 Temperature 97.8 F Pulse Rate 82 82 73 Respiratory Rate 16 Blood Pressure 180/76 H 194/82 H 157/68 H Pulse Oximetry 95 95 94 07/30/21 19:00 07/30/21 19:23 07/30/21 19:30 Temperature Pulse Rate 67 64 65 Respiratory Rate 18 Blood Pressure 155/73 H 160/70 H Pulse Oximetry 92 92 92 07/30/21 20:00 Temperature Pulse Rate 72 Respiratory Rate 20 Blood Pressure 147/66 H Pulse Oximetry Medical Decision Making Medical Records Medical records narrative: 80-year-old woman presents with increasing dyspnea and morning cough for the last 3-4 days. Workup is very reassuring. Negative COVID, no acute coronary syndrome, no bacterial consolidation or abnormalities appreciated on chest x-ray including absence of pneumothorax, low risk for pulmonary embolism and no congestive heart failure. She is moderately improved after a DuoNeb. At home she has Spiriva and albuterol with a spacer. She also has 20 mg prednisone tablets available to her at home. Given the absence of diagnoses as above most likely explanation today for her increasing dyspnea is an acute COPD exacerbation. Will ask her to take 20 mg of prednisone daily for the next 5 days. No indication for antibiotics at this time. Will have her use 2 puffs of her albuterol along with her Spiriva 1st thing in the morning. If she still having some coughing within 1-2 hours of that she can repeat 2 albuterol puffs. I also suggested that she use 2 puffs prior to her walks or and increased activity. She will follow-up with her [facility] physician she is safe for home discharge Lab Data Result diagrams: 07/30/21 18:40 07/30/21 18:40 Labs: Lab Results 07/30/21 07/30/21 07/30/21 Range/Units 18:00 18:40 18:40 WBC 7.2 (4.5-11.0) X10^3/uL RBC 5.08 (4.0-5.2) X10^6/uL Hgb 15.0 (12.0-16.0) g/dL Hct 44.5 (36-46) % MCV 87.6 (80-100) fL MCH 29.5 (26-34) PG MCHC 33.6 (30-36) % RDW 14.4 (11.6-14.8) % Plt Count 200 (150-400) X10^3/uL Neut % (Auto) 67.7 (50-75) % Lymph % (Auto) 20.0 L (25-40) % Moody % (Auto) 6.1 (3-14) % Eos % (Auto) 5.1 H (2-4) % Baso % (Auto) 1.1 (0-2) % Neut # (Auto) 4900 (0229-9326) /uL Lymph # (Auto) 1400 (5153-8798) /uL Moody # (Auto) 400 (0-900) /uL Eos # (Auto) 400 (0-450) /uL Baso # (Auto) 100 (0-100) /uL Sodium 137 (137-145) mmol/L Potassium 3.8 (3.4-5.1) mmol/L Chloride 99 (98-107) mmol/L Carbon Dioxide 31 (22-32) mmol/L BUN 27 H (7-17) mg/dL Creatinine 1.05 H (0.52-1.04) mg/dL Estimated GFR 50.7 L (>60) mL/min BUN/Creatinine Ratio 25.7 H (6-22) Glucose 103 (80-110) mg/dL Calcium 9.7 (8.4-10.2) mg/dL Magnesium 2.1 (1.6-2.3) mg/dL Total Bilirubin 0.5 (0.2-1.3) mg/dL AST 47 H (14-36) IU/L ALT 32 (<35) IU/L Alkaline Phosphatase 70 (38-126) U/L Troponin I < 0.012 (0.01-0.034) ng/mL NT-Pro-B Natriuret Pep 362 (<450) pg/mL Total Protein 7.9 (6.3-8.2) g/dL Albumin 4.6 (3.5-5.0) g/dL Globulin 3.3 (1.7-4.1) g/dL Albumin/Globulin Ratio 1.4 (1.0-2.8) SARS-CoV-2 (PCR) Negative (Negative) Imaging Data Chest x-ray: Radiologist's Impression: FINDINGS:? ? Surgical changes and devices:? None.? ? Lungs and pleura:? Bibasilar parenchymal scarring.? Lungs are clear of acute opacities..? No pleural effusions or pneumothorax.? ? Mediastinum:? Mediastinal contours appear normal.? Heart size is normal.? ? Bones and chest wall:? No suspicious bony lesions.? Overlying soft tissues appear unremarkable.? ? IMPRESSION:? No acute cardiopulmonary disease process. ? ? Dictated by: Tanja March MD, PhD on 07/30/2021 at 18:58 ? ? ECG Data Interpretation: Sinus rhythm at a rate of 67 Left axis deviation 1st degree block No acute ischemic changes MDM Narrative Medical decision making narrative: 80-year-old woman with increasing dyspnea and cough in the mornings over the last couple of days. No evidence of COVID, pulmonary infection otherwise, collapsed lung, acute coronary syndrome congestive heart failure or pulmonary embolism or significant anemia. She did improve with the DuoNeb. At this point I believe she has an acute COPD exacerbation will have her slightly increase her use of home albuterol, add 20 mg of prednisone daily for the next 5 days and have her follow-up with her primary care physician if things are not improving. She is safe for home discharge Discharge Plan Departure Patient Disposition: Home Clinical Impression: Acute exacerbation of chronic obstructive airways disease Instructions: DI for Chronic Obstructive Pulmonary Disease Activity Restrictions/Additional Instructions: Thank you for coming in today Your having an acute COPD exacerbation. You had your 1st dose of steroid in the emergency department today. Please take 20 mg (1 of the pills that you have) daily for the next 5 days. When you wake up in the morning use 2 puffs of your albuterol along with her Spiriva. If you are still having coughing than you can take another 2 puffs in 1-2 hours. I would recommend 2 puffs prior to going for a walker scheduled activity. If you find things are getting worse, please return to the ER. I would also recommend that you schedule a follow-up appointment with your primary care doctor. Prescriptions: No Action calcium carbonate-vitamin D3 [Calcium with Vitamin D] 600 mg(1,500mg) -400 unit Tablet 1.5 tab PO DAILY Qty: 0 RF: 0 levothyroxine [Synthroid] 75 MCG tablet 1 tab PO QDAY Qty: 0 RF: 0 acetaminophen 325 MG tablet 325 mg PO PRN PRN (Reason: Pain (Scale Score 1-3)) Qty: 0 RF: 0 aspirin 81 MG tablet,delayed release (DR/EC) 81 mg PO HS Qty: 0 RF: 0 CHOLECALCIFEROL (VITAMIN D3) (Vitamin D-3) 2,000 iu PO Q DAY Qty: 0 RF: 0 Spiriva Respimat 2.5 MCG/ACTUATION mist 2 puff IH QAM Qty: 0 RF: 0 rosuvastatin [Crestor] 10 MG tablet 10 mg PO QHS Qty: 30 RF: 0 albuterol sulfate 90 mcg/actuation Hfa Aerosol Inhaler 2 puff INHALATION Q4H PRN (Reason: Shortness Of Breath) RF: 0 Flovent Diskus 250 mcg/actuation Blister With Device 1 inh INHALATION BID RF: 0 cyanocobalamin (vitamin B-12) 1,000 mcg Capsule 1,000 mcg PO DAILY RF: 0 Hizentra 10 gram/50 mL (20 %) Solution 10 g SUBCUT WEEKLY RF: 0 triamterene-hydrochlorothiazid 37.5-25 mg Tablet 1 tab PO DAILY RF: 0 metoprolol succinate 25 mg Tablet Extended Release 24 Hr 25 mg PO DAILY RF: 0 escitalopram oxalate [Lexapro] 10 mg Tablet 10 mg PO DAILY RF: 0 amlodipine 5 mg Tablet 5 mg PO DAILY RF: 0 (DME) Respironics Dreamstation BIPAP Qty: 1 RF: 0 Referrals: Abraham Palumbo MD [Primary Care Provider] -
--- NOTE | 2021-07-30 18:26 | DI.RAD.S_ITS ---
PROCEDURE: XR CHEST 1V INDICATIONS: dyspnea TECHNIQUE: One view of the chest was acquired. COMPARISON: [facility], CR, XR CHEST 1V, 03/12/2020, 16:58. FINDINGS: Surgical changes and devices: None. Lungs and pleura: Bibasilar parenchymal scarring. Lungs are clear of acute opacities.. No pleural effusions or pneumothorax. Mediastinum: Mediastinal contours appear normal. Heart size is normal. Bones and chest wall: No suspicious bony lesions. Overlying soft tissues appear unremarkable. IMPRESSION: No acute cardiopulmonary disease process. Dictated by: Tanja March MD, PhD on 07/30/2021 at 18:58 Approved by: Tanja March MD, PhD on 07/30/2021 at 18:58
[2021-07-30 18:31] LABS: COVID19 -Nasal RAPID Negative (Negative)
[2021-07-30 18:45] LABS: Add Manual Diff / Slide Review NO; Basophils Absolute Auto 100 /uL (0-100); Basophils Percent Auto 1.1 % (0-2); Eosinophils Absolute Auto 400 /uL (0-450); Eosinophils Percent Auto 5.1 % (2-4); Hematocrit 44.5 % (36-46); Lymphocytes Absolute Auto 1400 /uL (1100-4500); Mean Corpuscular HGB Conc 33.6 % (30-36); Mean Corpuscular Hemoglobin 29.5 PG (26-34); Mean Corpuscular Volume 87.6 fL (80-100); Monocytes Absolute Auto 400 /uL (0-900); Monocytes Percent Auto 6.1 % (3-14); Neutrophils Absolute Auto 4900 /uL (1500-7000); Neutrophils Percent Auto 67.7 % (50-75); Platelet Count 200 X10^3/uL (150-400); Red Blood Cell Count 5.08 X10^6/uL (4.0-5.2); Red Cell Distribution Width 14.4 % (11.6-14.8); White Blood Cell Count 7.2 X10^3/uL (4.5-11.0)
[2021-07-30 19:07] LABS: Alanine Aminotransferase 32 IU/L (<35); Albumin 4.6 g/dL (3.5-5.0); Albumin Globulin Ratio 1.4 (1.0-2.8); Alkaline Phosphatase 70 U/L (38-126); Aspartate Aminotransferase 47 IU/L (14-36); BUN Creatinine Ratio 25.7 (6-22); Bilirubin Total 0.5 mg/dL (0.2-1.3); Blood Urea Nitrogen 27 mg/dL (7-17); Calcium 9.7 mg/dL (8.4-10.2); Carbon Dioxide 31 mmol/L (22-32); Chloride 99 mmol/L (98-107); Estimated Glomerular Filt Rate 50.7 mL/min (>60); Globulin 3.3 g/dL (1.7-4.1); Glucose 103 mg/dL (80-110); HEMOLYSIS < 15 (0-50); Magnesium 2.1 mg/dL (1.6-2.3); Potassium 3.8 mmol/L (3.4-5.1); Sodium 137 mmol/L (137-145); Total Protein 7.9 g/dL (6.3-8.2)
[2021-07-30 19:19] LABS: NT-proBNP (BNP-Adult 18+) 362 pg/mL (<450); Troponin I < 0.012 ng/mL (0.01-0.034)
[2021-07-30] MEDS: ALBUTEROL/IPRATROPIUM 3 ML AMPUL INH (19:19)
[2021-07-30] MEDS: methylPREDNISolone 125 MG/2 ML VIAL 60 MG IV (20:28)
== END 2021-07-30 20:50 | disposition home or self-care (01) ==
PROVIDERS: Emergency Provider Emergency Medicine; Family Provider Physician Assistant; PCP Internal Medicine
DX: J44.1 Chronic obstructive pulmonary disease with (acute) exacerbation (principal); I10 Essential (primary) hypertension; Z20.822 Contact with and (suspected) exposure to COVID-19
CPT/HCPCS: 36415; 71045; 80053; 83735; 83880; 84484; 85025; 87635; 93005; 93010; 94640; 96374; 99284; C9803; J2930

== ENCOUNTER → 2021-08-15 07:21 | Outpatient (CLI) | payer MEDICARE, OTHER, SELFPAY ==
[2020-03-12 21:21] VITALS: BMI 33.6
--- NOTE | 2021-08-15 | DI.US.S_ITS ---
PROCEDURE: US PERIPH VENOUS LOW EXTREM LT INDICATIONS: RULE OUT DVT TECHNIQUE: Real-time imaging, as well as color and pulse Doppler interrogation, were performed of the lower extremity deep veins from the inguinal ligament to the popliteal fossa. COMPARISON: None. FINDINGS: The common femoral, femoral and popliteal veins are normally compressible, and free of intraluminal thrombus. Color and pulse Doppler demonstrate normal phasic intraluminal flow. There is normal augmentation response to distal compression maneuver. IMPRESSION: No sonographic evidence of DVT. Dictated by: Luis Butterfield M.D. on 08/15/2021 at 8:30 Approved by: Luis Butterfield M.D. on 08/15/2021 at 8:31
== END ==
PROVIDERS: Family Provider Physician Assistant; PCP Internal Medicine; Referring Provider Internal Medicine; Visit Provider Internal Medicine
DX: I82.492 Acute embolism and thrombosis of other specified deep vein of left lower extremity (principal)
CPT/HCPCS: 93971

== ENCOUNTER → 2023-08-23 07:44 | Outpatient (CLI) | payer MEDICARE, OTHER, SELFPAY ==
[2021-09-24 11:55] VITALS: BMI 33.6
[2023-08-23 08:54] LABS: Add Manual Diff / Slide Review NO; Basophils Absolute Auto 100 /uL (0-100); Eosinophils Absolute Auto 400 /uL (0-450); Hematocrit 45.1 % (36-46); Hemoglobin 15.5 g/dL (12.0-16.0); Lymphocytes Absolute Auto 1400 /uL (1100-4500); Lymphocytes Percent Auto 23.7 % (25-40); Mean Corpuscular HGB Conc 34.3 % (30-36); Mean Corpuscular Hemoglobin 29.8 PG (26-34); Mean Corpuscular Volume 87.1 fL (80-100); Monocytes Absolute Auto 500 /uL (0-900); Monocytes Percent Auto 9.2 % (3-14); Neutrophils Absolute Auto 3400 /uL (1500-7000); Neutrophils Percent Auto 59.1 % (50-75); Platelet Count 208 X10^3/uL (150-400); Red Blood Cell Count 5.18 X10^6/uL (4.0-5.2); White Blood Cell Count 5.8 X10^3/uL (4.5-11.0)
[2023-08-23 09:34] LABS: Alanine Aminotransferase 38 IU/L (<35); Albumin 4.2 g/dL (3.5-5.0); Albumin Globulin Ratio 1.3 (1.0-2.8); Alkaline Phosphatase 74 U/L (38-126); Aspartate Aminotransferase 55 IU/L (14-36); BUN Creatinine Ratio 36.3 (6-22); Bilirubin Total 0.8 mg/dL (0.2-1.3); Blood Urea Nitrogen 29 mg/dL (7-17); Calcium 9.7 mg/dL (8.4-10.2); Carbon Dioxide 32 mmol/L (22-32); Chloride 96 mmol/L (98-107); Cholesterol 132 mg/dL (140-199); Estimated Glomerular Filt Rate > 60 mL/min (>60); Globulin 3.3 g/dL (1.7-4.1); Glucose 91 mg/dL (80-110); HDL Cholesterol 39 mg/dL (40-60); HEMOLYSIS < 15 (0-50); LDL Cholesterol Calculated 67 mg/dL (<100); Sodium 135 mmol/L (137-145); Total Protein 7.5 g/dL (6.3-8.2); Triglycerides 132 mg/dL (35-150)
[2023-08-23 10:18] LABS: TSH w/ Reflex to FT4 3.64 uIU/mL (0.47-4.68)
[2023-08-23 15:53] LABS: Creatinine Urine Random 24.8 mg/dL
[2023-08-23 15:59] LABS: Microalbumin Urine Random < 0.6 mg/dL (0-1.6)
== END ==
PROVIDERS: Family Provider Physician Assistant; PCP Family Medicine; Referring Provider Family Medicine; Visit Provider Family Medicine
DX: J44.9 Chronic obstructive pulmonary disease, unspecified (principal); E78.5 Hyperlipidemia, unspecified; G47.33 Obstructive sleep apnea (adult) (pediatric); E03.9 Hypothyroidism, unspecified; D83.9 Common variable immunodeficiency, unspecified; I10 Essential (primary) hypertension
CPT/HCPCS: 36415; 80053; 80061; 82043; 82570; 84443; 85025

== ENCOUNTER → 2023-09-01 09:31 | Outpatient (CLI) | payer MEDICARE, OTHER, SELFPAY ==
[2021-09-24 11:55] VITALS: BMI 33.6
--- NOTE | 2023-09-01 09:32 | DI.US.S_ITS ---
PROCEDURE: US ABDOMEN LIMITED INDICATIONS: LIVER DISEASE TECHNIQUE: Real-time focused scanning was performed of the abdomen, with image documentation. COMPARISON: [facility], CT, CT ANGIO CHEST PE PROTOCOL, 04/26/2020, 15:47. FINDINGS: The liver has a normal size and echotexture. 3 cysts are measured in the right lobe measuring 1.3 x 1.0 x 1.1 cm (septated), 1.1 x 0.9 x 0.7 cm, and 0.6 x 0.6 x 0.7 cm. IMPRESSION: 1. No acute abnormality. 2. Multiple hyperechoic foci in the gallbladder wall consistent with benign gallbladder wall cholesterolosis. 3. Simple benign hepatic cysts. Dictated by: Allen Van M.D. on 09/01/2023 at 10:39 Approved by: Allen Van M.D. on 09/01/2023 at 10:57
== END ==
PROVIDERS: Family Provider Physician Assistant; PCP Family Medicine; Referring Provider Family Medicine; Visit Provider Family Medicine
DX: K76.89 Other specified diseases of liver (principal); R74.01 Elevation of levels of liver transaminase levels; E88.01 Alpha-1-antitrypsin deficiency
CPT/HCPCS: 76705

== ENCOUNTER → 2024-12-21 08:55 | Outpatient (CLI) | payer MEDICARE, OTHER, SELFPAY ==
[2021-09-24 11:55] VITALS: BMI 33.6
[2024-12-21 10:37] LABS: BUN Creatinine Ratio 33.3 (6-22); Blood Urea Nitrogen 27 mg/dL (7-17); Calcium 9.3 mg/dL (8.4-10.2); Carbon Dioxide 31 mmol/L (22-32); Chloride 96 mmol/L (98-107); Estimated Glomerular Filt Rate > 60 mL/min (>60); Glucose 87 mg/dL (80-110); HEMOLYSIS < 15 (0-50); Potassium 3.6 mmol/L (3.4-5.1); Sodium 133 mmol/L (137-145)
== END ==
PROVIDERS: Family Provider Physician Assistant; PCP Family Medicine; Referring Provider Family Medicine; Visit Provider Family Medicine
DX: E87.6 Hypokalemia (principal)
CPT/HCPCS: 36415; 80048

== ENCOUNTER → 2025-01-02 09:02 | Outpatient (CLI) | payer MEDICARE, OTHER, SELFPAY ==
[2021-09-24 11:55] VITALS: BMI 33.6
[2025-01-02 10:15] LABS: Cholesterol 155 mg/dL (140-199); HDL Cholesterol 54 mg/dL (40-60); LDL Cholesterol Calculated 80 mg/dL (<100); Triglycerides 103 mg/dL (35-150)
[2025-01-02 10:31] LABS: Vitamin D 25 Hydroxy (D3) 50.7 ng/mL (30.0-100.0)
[2025-01-02 10:50] LABS: TSH w/ Reflex to FT4 3.27 uIU/mL (0.47-4.68)
[2025-01-03 03:10] LABS: CRP, High Sensitivity 1.64 mg/L (0.00-3.00)
== END ==
PROVIDERS: Family Provider Physician Assistant; PCP Family Medicine; Referring Provider Family Medicine; Visit Provider Family Medicine
DX: I10 Essential (primary) hypertension (principal); E78.5 Hyperlipidemia, unspecified; E03.9 Hypothyroidism, unspecified
CPT/HCPCS: 36415; 80061; 82306; 84443; 86140

== ENCOUNTER → 2025-09-14 09:34 | Outpatient (CLI) | payer MEDICARE, OTHER, SELFPAY ==
[2021-09-24 11:55] VITALS: BMI 33.6
[2025-09-14 10:54] LABS: Alanine Aminotransferase 35 IU/L (<35); Albumin 4.3 g/dL (3.5-5.0); Albumin Globulin Ratio 1.4 (1.0-2.8); Alkaline Phosphatase 77 U/L (38-126); Blood Urea Nitrogen 28 mg/dL (7-17); Calcium 9.6 mg/dL (8.4-10.2); Carbon Dioxide 31 mmol/L (22-32); Chloride 100 mmol/L (98-107); Estimated Glomerular Filt Rate > 60 mL/min (>60); Globulin 3.1 g/dL (1.7-4.1); Glucose 89 mg/dL (70-99); HEMOLYSIS < 15 (0-50); Potassium 4.2 mmol/L (3.4-5.1); Sodium 138 mmol/L (137-145); Total Protein 7.4 g/dL (6.3-8.2)
== END ==
PROVIDERS: Family Provider Physician Assistant; PCP Family Medicine; Referring Provider Family Medicine; Visit Provider Family Medicine
DX: I10 Essential (primary) hypertension (principal); E78.2 Mixed hyperlipidemia; E66.9 Obesity, unspecified
CPT/HCPCS: 36415; 80053